=== PATIENT | male | born 1995 | race Caucasian/White ===

== ENCOUNTER 2023-01-29 12:48 | Outpatient (OUT) | payer BC, SELFPAY ==
--- NOTE | 2023-01-29 13:42 | P.CN_ITS ---
Consult Note: HPI Data of Consult Patient: new to practice Consult date: 01/29/23 Requesting Physician: Steve Rene MD Primary Care Provider: TEJAS SAUNDERS Consult Narrative Reason for consult: low back, bilateral lower extremity pain Narrative: Latonia Herrerayoclair who presents for evaluation. Notes increasing pain throughout his low back and bilateral lower extremities that has been worsening for several months. Completed chiropractic therapy, medrol dosepak, tizanidine without much relief. Engages in provider directed home exercise program for >6 weeks, with limited relief. MRI was reviewed, which is significant for disc bulging at L5- S1. 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 Denies adverse medication side effects or loss of bowel or bladder control. cc:: CC: Steve Rene MD Review of Systems ROS Status of ROS 10 or more systems reviewed and unremarkable except as noted in history and below Exam Narrative Exam Narrative: Psych-alert and oriented x 3. Attentive and appropriate, constitutionally normal, displays normal mood and affect per situation. There are no obvious deficits in memory, reasoning, or intellect.? Skin-no obvious rashes, bruising, erythema noted to the patient's area of pain.? Extremities- extremities are warm with minimal edema and palpable pulses. Lumbar-tenderness to palpation noted in the lumbar spine and paraspinal musculature. Pain is elicited with flexion, extension, and lateral rotation of the lumbar spine. Range of motion is diminished with these motions. Facet loading maneuvers are positive.? Strength-noted to be unremarkable with the exception of decreased strength rated at 4 out of 5 in bilateral quadriceps femoris. Sensory-no notable sensory deficits in the bilateral lower extremities to touch or pinprick in all dermatomal distributions with the exception to decreased sensation to the bilateral 4, 5 dermatomal distribution Coordination remains intact.? Gait remains non-antalgic Assessment and Plan Assessment and Plan (1) Lumbar disc displacement without myelopathy: Plan Latonia Herrerayoclair who presents for evaluation. Failed conservative measures, as noted. Imaging findings reviewed, as noted. Given symptoms and imaging findings, prudent to attempt bilateral L5-S1 TFESI x2 to provide analgesia. He is in agreement. Medications reviewed, no changes. Follow up after procedure.
== END 2023-01-29 12:49 | disposition home or self-care (01) ==
PROVIDERS: PCP Nurse Practitioner Primary Care; Visit Provider Anesthesiology
DX: M51.26 Other intervertebral disc displacement, lumbar region (principal)
CPT/HCPCS: G0463

== ENCOUNTER 2023-02-19 08:02 | Day surgery (SDC) | payer BC, SELFPAY ==
[2023-02-19 08:24] VITALS: BP 130/90; PULSE 95; RESP 14; TEMP 36.3; O2SAT 98
[2023-02-19 09:10] VITALS: BP 122/75; PULSE 83; RESP 16; O2SAT 99
[2023-02-19] MEDS: TRIAMCINOLONE ACETONIDE 40 MG/ML VIAL 80 MG INJ (09:11)
[2023-02-19] MEDS: LIDOCAINE HCL 2% PF 100 MG/5 ML VIAL 3 ML INJ (09:11)
[2023-02-19] MEDS: BUPIVACAINE HCL 0.25% PF 25 MG/10 ML VIAL 4 ML INJ (09:11)
[2023-02-19] MEDS: IOHEXOL 240 MG/ML - 10 ML VIAL INJ (09:11)
[2023-02-19 09:13] VITALS: BP 118/74; PULSE 78; RESP 16; O2SAT 98
--- NOTE | 2023-02-19 09:14 | W.PM.PROCNOT ---
Date of procedure: 02/19/23 Pre-op diagnosis: Lumbar stenosis with neurogenic claudication Post-op diagnosis: same as pre-op Procedure: Procedure: Bilateral L5-S1 transforaminal epidural steroid injection Medications: Bupivacaine 0.25% 2cc, kenalog 80mg The patient was seen and examined in the preoperative holding area.? Informed consent was obtained and placed on the chart.? Patient was brought to the medical procedure unit and placed in the prone position where a timeout was completed verifying the correct patient, procedure site, position, and planned special equipment using sterile aseptic technique.? Under direct fluoroscopic visualization a 25-gauge Quincke tipped spinal needle was advanced at level left L5-S1 to the designated neural foramen where contrast dye was injected to show adequate spread.? There was no evidence of vascular or adverse uptake.? Epidural spread was appreciated.? The above-mentioned injectate was then placed in a 1.5 mL aliquot preceded by negative aspiration.? The needle was removed. The same procedure, at the same level, was completed on the opposite side. ? Patient was taken to the postprocedural recovery area and monitored for an appropriate length of time before found suitable for discharge in the accompaniment of a responsible adult. Anesthesia: Local Surgeon: Steve Rene Pathology: none sent Condition: stable Disposition: no change
== END 2023-02-19 09:17 | disposition home or self-care (01) ==
PROVIDERS: PCP Nurse Practitioner Primary Care; Visit Provider Anesthesiology
DX: M48.062 Spinal stenosis, lumbar region with neurogenic claudication (principal)
CPT/HCPCS: 64483; Q9966

== ENCOUNTER 2023-02-28 10:16 | Outpatient (OUT) | payer BC, SELFPAY ==
--- NOTE | 2023-02-28 11:02 | P.CN_ITS ---
Consult Note: HPI Data of Consult Patient: known to practice within the last 3 years Consult date: 01/29/23 Requesting Physician: Soha Mariano NP Primary Care Provider: TEJAS SAUNDERS Consult Narrative Reason for consult: low back, bilateral lower extremity pain Narrative: Pleasant 27yom who presents for evaluation. Notes increasing pain throughout his low back. Completed chiropractic therapy, medrol dosepack, tizanidine without much relief. Engages in provider directed home exercise program for >6 weeks, with limited relief. MRI was reviewed, which is significant for disc bulging at L5-S1. 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 Denies adverse medication side effects or loss of bowel or bladder control. Patient rating pain today 3-4/10. JENNY 30% with moderate pain, pain with lifting heavy weights, pain that prevents him from walking more than 0.5 miles, pain that causes 4 hours of sleep or less, pain that impacts social life and travel. Patient recently underwent bilateral L5-S1 TFESI with 0% pain relief or functional improvement per patient cc:: CC: Soha Mariano NP Review of Systems ROS Status of ROS 10 or more systems reviewed and unremarkable except as noted in history and below Musculoskeletal Reports: back pain Meds Home Medications and Allergies Home Medications Medication Instructions Recorded Confirmed Type diclofenac sodium 75 mg 75 mg PO BID 01/29/23 02/19/23 History tablet,delayed release tizanidine 4 mg capsule 4 mg PO BID PRN muscle spasticity 01/29/23 02/19/23 History Allergies Allergy/AdvReac Type Severity Reaction Status Date / Time No Known Drug Allergies Allergy Verified 02/19/23 08:23 Exam Constitutional Documenting provider has reviewed patient's vital signs: yes Common normals: no apparent distress, oriented x3, healthy appearing, alert and well nourished General appearance: cooperative HENMT Common normals: normocephalic, hearing grossly normal bilaterally and moist oral mucous membranes Head and scalp: normocephalic Eye Common normals: PERRL Pupil: PERRL Neck & C-Spine Common normals: full ROM General: normal visual inspection Chest Common normals: inspection of chest normal Respiratory Common normals: normal respiratory effort, no retractions and no use of accessory muscles Back & Pelvis Lumbar spine/lower back: ROM limited, pain with ROM and straight leg raise negative bilaterally Other: bilateral facet loading positive axial back pain without radiculopathy pain over L4-5 L5-S1 facets Extremity Common normals: normal to inspection and full ROM Neuro Common normals: oriented x3, CN's II-XII intact bilaterally, moves all extremities, no focal motor deficits, no sensory deficits noted, deep tendon reflexes 2+ bilaterally and gait normal Sensorium/orientation: alert Motor exam: strength 5/5 throughout and no movement abnormalities noted Psych Common normals: mental status grossly normal, thought process normal, cooperative, affect normal, speech normal and activity/motor behavior normal Speech: normal speech Thought process: normal thought process Results Additional Findings Additional findings: I have checked an OARRS report on this patient today and there are no aberrancies noted in the prescribing history.?? A drug screen was completed and reviewed within the last year, and if there has not been a drug screen completed we ordered one today to monitor higher risk, state monitored pain medication use. As part of providing excellent, safe, comprehensive care, the following was completed at our patient's visit: 1. A medication reconciliation and review to ensure accurate knowledge of current/active medications, including asking our patients to inform us about any quaz-xzl-tyuacxf medications or herbal remedies/nutritional supplements/alternative remedies. 2. A review to specifically ensure our patients have had annual screening for: elevated body mass index (BMI), tobacco use, screening for depression, and screening for unhealthy alcohol use. When screening is concerning, patients are provided with education and the specific recommendation to discuss the concerni ng health issue and treatment options with their primary care provider. Assessment and Plan Assessment and Plan (1) Lumbar disc displacement without myelopathy: (2) Lumbar spondylosis: Assessment and Plan: The patient has had over 3 months of moderate to severe low back pain with functional impairment and inadequate response to conservative care including NSAIDS (unless there are contraindication such as concurrent blood thinners), multiple oral or topical pain medications, and home exercise program/physical therapy.? Patient has completed >6 weeks of guided home exercise program and/or formal physical therapy program without relief of their symptoms. ? We discussed the risks and benefits of the procedure with the patient ?The procedure will be completed with fluoroscopic guidance.? Plan -bilateral L4-5 L5-S1 MBB working towards a thermal RFA. if patient has greater than 80% pain relief and functional improvement will proceed with MBB #2 working towards thermal RFA refill and continue tizanidine 4mg BID PRN continue diclofenac 75mg BID PRN, encouraged to try more consistently to see if that improves his pain -continue HEP as tolerated, activity moderately limited -can consider steroid rotation and repeat lumbar ANASTASIA if he does not respond well to MBB -f/u 1 week after procedure
== END 2023-02-28 10:17 | disposition home or self-care (01) ==
LOC: PM 10:17
PROVIDERS: PCP Nurse Practitioner Primary Care; Visit Provider Nurse Practitioner
DX: M51.26 Other intervertebral disc displacement, lumbar region (principal); M47.816 Spondylosis without myelopathy or radiculopathy, lumbar region
CPT/HCPCS: G0463

== ENCOUNTER 2023-04-02 08:34 | Day surgery (SDC) | payer BC, SELFPAY ==
[2023-04-02 09:06] VITALS: BP 126/86; PULSE 98; RESP 16; TEMP 36.2; O2SAT 97
[2023-04-02] MEDS: LIDOCAINE HCL 2% PF 100 MG/5 ML VIAL 3 ML INJ (09:59)
[2023-04-02] MEDS: BUPIVACAINE HCL 0.25% PF 25 MG/10 ML VIAL 8 ML INJ (09:59)
[2023-04-02 10:01] VITALS: BP 137/75; PULSE 85; RESP 16; O2SAT 98
[2023-04-02 10:02] VITALS: BP 150/82; PULSE 84; RESP 18; O2SAT 98
--- NOTE | 2023-04-02 10:02 | W.PM.PROCNOT ---
Date of procedure: 04/02/23 Pre-op diagnosis: Lumbar spondylosis Post-op diagnosis: same as pre-op Procedure: Procedure: Bilateral L4-5, L5-S1 medial branch block Medications: Bupivacaine 0.25% 6cc The patient was seen and examined in the preoperative holding area.? An informed consent was obtained and placed on the chart.? The patient was brought to the medical procedure unit and placed in the prone position.? A timeout was completed verifying correct patient, procedure site, positioning, plan, and special equipment.? Using aseptic technique, the needle was placed at left L4. Under direct fluoroscopic visualization a Quincke-tipped spinal needle was advanced to the junction of the superior articulating process with the transverse process at the designated medial branch segment.? Preceded by negative aspiration, the above-mentioned injectate was placed in 1 mL aliquots.? The procedure was repeated at left L5, S1.? The needle was removed and insertion site was covered. The same procedure, at the same levels, was completed on the right side. The patient was taken to the postprocedural recovery area and monitored for an appropriate length of time before found suitable for discharge in the company of a responsible adult. Anesthesia: Local Surgeon: Steve Rene Pathology: none sent Condition: stable Disposition: no change
== END 2023-04-02 10:06 | disposition home or self-care (01) ==
PROVIDERS: PCP Nurse Practitioner Primary Care; Visit Provider Anesthesiology
DX: M47.816 Spondylosis without myelopathy or radiculopathy, lumbar region (principal)
CPT/HCPCS: 64493; 64494

== ENCOUNTER 2023-04-12 08:03 | Outpatient (OUT) | payer BC, SELFPAY ==
--- NOTE | 2023-04-12 08:24 | P.CN_ITS ---
Consult Note: HPI Data of Consult Patient: known to practice within the last 3 years Consult date: 01/29/23 Requesting Physician: Soha Mariano NP Primary Care Provider: HUMBERTO COLEY APRN-KAVITA Consult Narrative Reason for consult: f/u Narrative: Pleasant 27yom who presents for evaluation of low back pain. Pt had completed chiropractic therapy, medrol dosepack, tizanidine without much relief. Engages in provider directed home exercise program for >6 weeks, with limited relief previously. Denies adverse medication side effects or loss of bowel or bladder control. Patient rating pain today 0/10. JENNY 0%. Patient recently underwent bilateral L4/5 L5/S1 MBB#1 with 100% ongoing pain relief and functional improvement. Patient has had 0/10 low back pain since the injection and is very pleased. Has not needed tizanidine or diclofenac. cc:: CC: Soha Mariano NP Review of Systems ROS Status of ROS 10 or more systems reviewed and unremark able except as noted in history and below [facility] Medical History (Updated 03/20/23 @ 15:06 by Fannie Hilario) Low back pain ?M54.50 - Low back pain, unspecified (ICD-10) Surgical History History of appendectomy ?Z90.49 - Acquired absence of other specified parts of digestive tract (ICD- 10) Meds Home Medications and Allergies Home Medications Medication Instructions Recorded Confirmed Type diclofenac sodium 75 mg 75 mg PO BID 01/29/23 04/02/23 History tablet,delayed release tizanidine 4 mg capsule 4 mg PO BID PRN muscle spasticity 01/29/23 04/02/23 History Allergies Allergy/AdvReac Type Severity Reaction Status Date / Time No Known Drug Allergies Allergy Verified 04/02/23 09:11 Exam Constitutional Documenting provider has reviewed patient's vital signs: yes Common normals: no apparent distress, oriented x3, healthy appearing, alert and well nourished General appearance: cooperative HENMT Common normals: normocephalic, hearing grossly normal bilaterally and moist oral mucous membranes Head and scalp: normocephalic Eye Common normals: PERRL Pupil: PERRL Neck & C-Spine Common normals: full ROM General: normal visual inspection Chest Common normals: inspection of chest normal Respiratory Common normals: normal respiratory effort, no retractions and no use of accessory muscles Back & Pelvis Lumbar spine/lower back: straight leg raise negative bilaterally Other: no low back pain, negative facet loading, nontender over low back Extremity Common normals: normal to inspection and full ROM Neuro Common normals: oriented x3, CN's II-XII intact bilaterally, moves all extremities, no focal motor deficits, no sensory deficits noted and deep tendon reflexes 2+ bilaterally Sensorium/orientation: alert Motor exam: strength 5/5 throughout and no movement abnormalities noted Psych Common normals: mental status grossly normal, thought process normal, cooperative, affect normal, speech normal and activity/motor behavior normal Speech: normal speech Thought process: normal thought process Results Additional Findings Additional findings: I have checked an OARRS report on this patient today and there are no aberrancies noted in the prescribing history.?? A drug screen was completed and reviewed within the last year, and if there has not been a drug screen completed we ordered one today to monitor higher risk, state monitored pain medication use. As part of providing excellent, safe, comprehensive care, the following was completed at our patient's visit: 1. A medication reconciliation and review to ensure accurate knowledge of current/active medications, including asking our patients to inform us about any ndex-kdh-dxdqhbw medications or herbal remedies/nutritional supplements/alternative remedies. 2. A review to specifically ensure our patients have had annual screening for: elevated body mass index (BMI), tobacco use, screening for depression, and screening for unhealthy alcohol use. When screening is concerning, patients are provided with education and the specific recommendation to discuss the conc erning health issue and treatment options with their primary care provider. Assessment and Plan Assessment and Plan (1) Lumbar spondylosis: (2) Lumbar disc displacement without myelopathy: Plan pain resolved at this point in time, if pain returns or functional status declins we will proceed with bilateral L4-5 L5-S1 MBB#2 working towards thermal RFA f/u as needed
== END 2023-04-12 08:04 | disposition home or self-care (01) ==
LOC: PM 08:08
PROVIDERS: PCP Nurse Practitioner Primary Care; Visit Provider Nurse Practitioner
DX: M47.816 Spondylosis without myelopathy or radiculopathy, lumbar region (principal); M51.26 Other intervertebral disc displacement, lumbar region
CPT/HCPCS: G0463

== ENCOUNTER 2023-11-29 14:16 | Outpatient (OUT) | payer BC, SELFPAY ==
--- NOTE | 2023-11-29 14:22 | XR_ITS ---
[facility] [place] [id number] Patient Name: ADILENE MTZ MRN: [id number] date: 1995 Sex: M Assigned Patient Location: [facility] Current Patient Location: Accession/Order Number: [id number] Exam Date: 11/29/2023 14:55 Report Date: 12/03/2023 07:56 At the request of: HIGINIO CRUZ Procedure: XR lumbar spine min 4V EXAMINATION: XR lumbar spine min 4V HISTORY: Low Back Pain M54.50 ; bilateral hip pain ; recent fall COMPARISON: No relevant comparison available. FINDINGS: BONES: Slight left convex curvature of lumbar spine. No fracture, spondylolisthesis, bone lesion. No significant facet arthropathy. DISC SPACES: Minimal narrowing L5-S1. PARASPINOUS: Negative. No paraspinous abnormality is seen. OTHER: Negative. XR/XR lumbar spine min 4V IMPRESSION: 1. No appreciable acute abnormality. 2. Minimal degenerative changes. Electronically authenticated by: CHRISSY MURGUIA Date: 12/03/2023 07:56
--- OUTSIDE RECORDS SUMMARY | 2023-11-29 14:43 | XMS_ITS | CCD ---
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 Name Role Phone TERENCE Rice Attending Provider Melody Rice Attending Unavailable Melody Rice Admitting Unavailable NO FAMILY, PHYSICIAN Primary Care Unavailable Barbaraitis , Steve Gay Attending Unavailable Barbaraitis , Steve Gay Attending Unavailable Anju JONES, Steve Gay Attending Unavailable Problems Problem Classification Problem Date Documented Da te Episodic/Chronic Unclassified (1 source) Pain in left hand; Translations: [Pain in left hand] Onset: 12-06-2022 Results Test Name Value Interpretation Reference Range Facil ity XR hand LT min 3V*on 023 XR hand LT min 3V* [facility] [place] [address] XRay Report Signed Patient: Adilene Mtz MR#: [id number] : 1995 Acct:[id number] Age/Sex: 27 / M ADM Date: 12/06/22 Loc: XNDLY Room: Type: [facility] Attending Dr: Melody PRATT Copies to: TERENCE Hill Ordering Provider: TERENCE Hill Date of Service: 12/06/22 XR/XR hand LT min 3V*: M79.642 3 views left hand hand plain film COMPARISON: None HISTORY: Hand injury. Second third and fourth metacarpal ACUTE FINDINGS: None DEGENERATIVE CHANGE: Unremarkable SOFT TISSUE FINDINGS: Unremarkable JOINT EFFUSION: None POSTOP CHANGES: None BONY MINERALIZATION: Adequate XR/XR hand LT min 3V* IMPRESSION: No acute findings Impression dictated by: Jose Luis Morgan M.D.12/06/2022 7:21 PM Dictation Location: [place] [address] Transcribed By: [facility] 12/06/221920 Dictated By: Jose Luis Morgan DO 12/06/221918 Signed By: 12/06/221920 [facility] ED Physician Reporton 2021 ED Physician Report Patient: ADILENE MTZ Age: 26 years Sex: Male : 1995 Associated Diagnoses: Left knee injury; Left knee sprain Author: Simona Modi CNP Basic Information Time seen: Date & time 12/20/2021 12:50:00. History source: Patient. Arrival mode: Private vehicle. History limitation: None. History of Present Illness The patient presents with knee pain. The onset was just prior to arrival. Type of injury: fall. Location: Left knee. The character of symptoms is pain and swelling. The degree at present is severe. There are exacerbating factors including weight bearing and walking. The relieving factor is none. Risk factors consist of none. Prior episodes: none. Therapy today: none. Associated symptoms: none. Patient is a 26-year-old male presents to the emergency room department for complaints of left knee pain status post fall. Patient states he was at work when he was working with a rebar and the rebar came snapped. Patient fell on his left knee against the concrete. Patient states he had a hard time ambulating after his fall and came to the ER for an evaluation. Patient states he told he has a partial tear in his left meniscus, but has not had any type of surgical intervention. Patient has no chronic medical problems and does not take any medication daily. Review of Systems Constitutional symptoms: Negative except as documented in HPI. Skin symptoms: Negative except as documented in HPI. Eye symptoms: Negative except as documented in HPI. ENMT symptoms: Negative except as documented in HPI. Respiratory symptoms: Negative except as documented in HPI. Cardiovascular symptoms: Negative except as documented in HPI. Gastrointestinal symptoms: Negative except as documented in HPI. Genitourinary symptoms: Negative except as documented in HPI. Musculoskeletal symptoms: Negative except as documented in HPI, left knee pain. Psychiatric symptoms: Negative except as documented in HPI. Endocrine symptoms: Negative except as documented in HPI. Hematologic/Lymphatic symptoms: Negative except as documented in HPI. Allergy/immunologic symptoms: Negative except as documented in HPI. Neurologic symptoms Negative except as documented in HPI. Additional review of systems information: All other systems reviewed and otherwise negative. Health Status Allergies: Allergic Reactions (Selected) No Known Allergies. Medications: None. Immunizations: Unknown. Past Medical/ Family/ Social History Medical history: Negative. Surgical history: Negative. Family history: Not significant. Social history: Not significant. Physical Examination Vital Signs Vital Signs 12/20/2021 12:20 EDT Temperature Oral 37.1 degC NORMAL Peripheral Pulse Rate 94 bpm NORMAL Respiratory Rate 20 br/min NORMAL Systolic Blood Pressure 133 mmHg NORMAL Diastolic Blood Pressure 88 mmHg NORMAL SpO2 97 % NORMAL Oxygen Therapy Room air Weight Measured Type of Scale Patient Stated Weight Height/Length Dosing 185.42 cm Patient Stated Weight 90.3 kg . General: Alert, no acute distress. Skin: Warm, dry, no rash. Head: Normocephalic, atraumatic. Neck: Supple, trachea midline. Eye: Pupils are equal, round and reactive to light, extraocular movements are intact. Ears, nose, mouth and throat: Oral mucosa moist. Cardiovascular: Regular rate and rhythm, Normal peripheral perfusion, No edema. Respiratory: Lungs are clear to auscultation, respirations are non-labored, breath sounds are equal. Gastrointestinal: Soft, Nontender, Non distended, Normal bowel sounds. Back: Normal range of motion, Normal alignment. Musculoskeletal: Normal ROM, normal strength, no deformity, Lower extremity: Right, knee, tenderness, swelling, range of motion (limited, on flexion, restricted by pain), sensation intact, strong pedal pulses. Dori coma scale Total score: Total score: 15. Neurological Alert and oriented to person, place, time, and situation, No focal neurological deficit observed, CN II-XII intact, normal sensory observed, normal motor observed, normal speech observed. Medical Decision Making Radiology results: KNEE LEFT 3 VIEWS 12/20/21 12:55:00 Sex: Male. : 1995. Technique: 3 views of the left knee. Clinical history: PAIN. Findings: The knee joint is normal. The patellofemoral joint is normal. There is no suprapatellar bursal articular effusion. There is no fracture or dislocation. No destructive lesion. Impression: 1. No acute skeletal abnormality. Electronically signed by: Jarrett Roblero MD 12/20/2021 12:38 PM CDT Signed By: JARRETT ROBLERO MD. Reexamination/ Reevaluation Is a 26-year-old male presents to the emergency room department for complaints of left knee injury. X-ray read by radiologist showed no acute skeletal abnormality. Patient was placed in knee immobilizer and was given crutches. Patient told to follow-up with orthopedic (more content not included)... Normal [facility] APAP 325MG/OXYCODONE 5MG TAB on 12-20-2021 APAP 325MG/OXYCODONE 5MG TAB PRN Response Entered On: 12/20/2021 15:25 EDT Performed On: 12/20/2021 14:12 EDT by Ayah Brooke RN Intervention Information: acetaminophen-oxycodo ne Performed by Ayah Brooke RN on 12/20/2021 13:12:00 EDT acetaminophen-oxycodo ne (acetaminophen-oxycod one 325 mg-5 mg oral tablet = Percocet),1tabs ORAL PRN Medication Response PRN Medication used for : Pain PRN Medication Effectiveness : Yes PRN Response Pain Scales : Numeric (8yrs & older) Numeric Pain Scale Age : Numeric (8yrs & older) Actual time of reassessment : No (not needed time is correct) Ayah Brooke RN - 12/20/2021 15:25 EDT Numeric Pain Scale Numeric Pain Scale : 7 = Severe Pain Numeric Pain Score : 7 Ayah Brooke RN - 12/20/2021 15:25 EDT Normal [facility] Comment on above: Order Comment: Check for other orders containing acetaminophen before administering. Max total daily amount is 4000 mg. ED Adult Data - Texton 12-20 ED Adult Data - Text ED Adult Data Entered On: 12/20/2021 12:34 EDT Performed On: 12/20/2021 12:33 EDT by Corinne Ríos RN Arrival Information Information Given by : Patient Referral Source ED : Home [facility] Mode of Arrival : Car / Walk-In Airway : Normal Breathing : Normal Circulation : Normal Corinne Ríos RN - 12/20/2021 12:33 EDT Screening-General Meds Triage : NA Accept Blood Products if Necessary : Yes Immunizations Current : Unknown Last Tetanus : Unknown Status : N/A Preferred Verbal : Czech Corinne Ríos RN - 12/20/2021 12:33 EDT Depression Screening Patient able to verbalize? : Yes Feeling Down, Depressed, Hopeless : Not at all Little Interest - Pleasure in Activities : Not at all Initial Depression Screen Score : 0 Depression Screening Score 0 : No IP Pt being evaluated or treated for BH conditions : No Corinne Ríos RN - 12/20/2021 12:33 EDT Screening-Safety Abuse/Violence Concerns? : Patient denies Does the patient have a medically restricted extremity? : No Corinne Ríos RN - 12/20/2021 12:33 EDT Problem List Problem List obtained from : Patient Corinne Ríos RN - 12/20/2021 12:33 EDT (As Of: 12/20/2021 12:34:27 EDT) Problems(Active) No Chronic Problems (Cerner :NKP ) Name of Problem: No Chronic Problems ; Recorder: Corinne Ríos RN; Code: NKP ; Last Updated: 12/20/2021 12:32 EDT ; Life Cycle Date: 12/20/2021 ; Life Cycle Status: Active ; Vocabulary: Faye Diagnoses(Active) Knee pain-swelling Date: 12/20/2021 ; Diagnosis Type: Reason For Visit ; Confirmation: Confirmed ; Clinical Dx: Knee pain-swelling ; Classification: Medical ; Clinical Service: Emergency medicine ; Code: PNED ; Probability: 0 ; Diagnosis Code: [id number] Procedure History ED Devices Present on Arrival To ED : None Urinary Catheter Present on Admit to ED : No Corinne Ríos RN - 12/20/2021 12:33 EDT - Procedure History (As Of: 12/20/2021 12:34:27 EDT) Social History Does pt have any alcohol,drugs or tobacco : No Do you consume Alcohol : No Social History obtained from : Patient Corinne Ríos RN - 12/20/2021 12:33 EDT Social History (As Of: 12/20/2021 12:34:27 EDT) Alcohol: Denies Alcohol Use (Last Updated: 12/20/2021 12:34:12 EDT by Corinne Ríos RN ) Tobacco: Denies Tobacco Use (Last Updated: 12/20/2021 12:34:13 EDT by Corinne Ríos RN ) Substance Abuse: Denies Substance Abuse (Last Updated: 12/20/2021 12:34:15 EDT by Corinne Ríos RN ) Infection Screening Last Physical Overnight Location of the Patient : Personal Residence Discharge from Other Facility in past 4 weeks : No Travel outside [place] within past 30 days : No History of Recent Diarrhea : No Concern possible Infectious Disease : No Exposure AND/OR close contact with a person under investigation or laboratory-confirmed COVID-19 individual within 14 days of symptom onset AND/OR any of the following: : No Do you live/work in a high risk situation (congregated living, hemodialysis, infusion clinic, fdc, assisted living, skilled nursing, homeless penitentiary, etc.)? : No Corinne Ríos RN - 12/20/2021 12:33 EDT Normal [facility] ED Discharge Educationon ED Discharge Education Orthopedics and Rheumatology Learning About How to Use Crutches Your Care Instructions Crutches can help you walk when you have an injured hip, leg, knee, ankle, or foot. Your doctor will tell you how much weightif anyyou can put on your leg. Be sure your crutches fit you. When you stand up in your normal posture, there should be space for two or three fingers between the top of the crutch and your armpit. When you let your hands hang down, the hand aquatics director should be at your wrists. When you put your hands on the hand aquatics director, your elbows should be slightly bent. To stay safe when using crutches: ? Look straight ahead, not down at your feet. ? Clear away small rugs, cords, or anything else that could cause you to trip, slip, or fall. ? Be very careful around pets and small children. They can get in your path when you least expect it. ? Be sure the rubber tips on your crutches are clean and in good condition to help prevent slipping. ? Avoid slick conditions, such as wet floors and snowy or icy driveways. In bad weather, be especially careful on curbs and steps. How to use crutches Getting ready to walk 1. Bend your elbows slightly. Press the padded top parts of the crutches against your sides, under your armpits. 2. If you have been told not to put any weight on your injured leg, keep that leg bent and off the ground. How to walk with crutches when you can put weight on the injured leg Crutches allow you to take all the weight off of one leg. They can also be used as an added support if you have some injury or condition of both legs. Here's how to walk with crutches when you're able to put weight on your weak or injured leg. Be sure your crutches fit you. ? When you stand up in your normal posture, there should be space for two or three fingers between the top of the crutch and your underarm. ? When you let your hands hang down, the hand aquatics director should be at your wrists. ? When you put your hands on the hand aquatics director, your elbows should be slightly bent. 1. Put both crutches about 12 inches in front of you. 2. Put your weight on the handgrips, not on the pads under your arms. 3. Move your weak or injured leg forward so it's almost even with the crutches. 4. Bring your good leg up, so it's even with your weak or injured leg. 5. Move your crutches about 12 inches in front of you, and start the next step. The crutches and your feet should form a triangle. Hold the crutches close enough to your body so you can push straight down on them, but leave room between the crutches for your body to pass through. Don't lean forward to reach farther. Constant pressure against your underarms can cause numbness. When you're confident using the crutches, you can move the crutches and your injured leg at the same time. Then push straight down on the crutches as you step past the crutches with your strong leg, as you would in normal walking. Take small steps. Use ramps and elevators when you can. Sitting down 1. To sit, back up to the chair. Use one hand to hold both crutches by the handgrips, beside your injured leg. With the other hand, hold onto the seat and slowly lower yourself onto the chair. 2. Lay the crutches on the ground near your chair. If you prop them up, they may fall over. Getting up from a chair 1. To get up from a chair, corn picker the crutches and put them in one hand beside your injured leg. 2. Put your weight on the handgrips of the crutches and on your strong leg to stand up. How to go up and down stairs using crutches Here's how to go up and down stairs using crutches. Try this first with another person nearby to steady you if needed. 1. Stand near the edge of the stairs. 2. Go up or down the stairs. ? If you are going up, step up with your stronger leg. Then bring the crutches and your weak or injured leg to the upper step. ? If you are going down, put your crutches and your weak or injured leg on the lower step. Then bring your stronger leg down to the lower step. Remember up with the good, and down with the bad to help you lead with the correct leg. Crutches: How to go up and down stairs with handrails If the stairs have a good sturdy handrail, you can hold it with one hand and your crutches together in the other hand. Here's how. Try this first with another person nearby to steady you if needed. If the stairs have a handrail but you don't think it's sturdy enough, use the crutches normally, holding one in each hand. 1. Stand near the edge of the stairs. 2. Put both crutches under the arm opposite the handrail. 3. Use the hand opposite the handrail to hold both crutches by the handgrips. 4. Hold onto the handrail as you go up or down. 5. Go up or down the stairs. ? If you are going up, step up with your stronger leg. Then bring the crutches and your weak or injured leg to the upper step. ? If you are going down, put your crutches and your weak or injured leg on the lower step. Then bring your stronger leg d (more content not included)... Normal [facility] ED Emergency Severity Index Adult-Texton 12-20-2021 ED Emergency Severity Index Adult-Text ANASTASIA - Adult Entered On: 12/20/2021 12:28 EDT Performed On: 12/20/2021 12:28 EDT by Corinne Ríos RN ANASTASIA DCP GENERIC CODE Visit Reason : left knee injury Tracking Triage Date/Time : 12/20/2021 12:28 EDT Tracking Reg Status : Requested Tracking Acuity : [id number] Tracking Group : [id number] Tracking Corinne Ríos RN - 12/20/2021 12:28 EDT Normal [facility] ED Nrsing Adlt Triage Sep Sc rning - Texton 12-20-2021 ED Nrsing Adlt Triage Sep Scrning - Text ED Nursing Adult Triage Sepsis Screening Tool Entered On: 12/20/2021 12:32 EDT Performed On: 12/20/2021 12:32 EDT by Corinne Ríos RN Adult Sepsis Screening Sepsis Infection Screening ED : No Corinne Ríos RN - 12/20/2021 12:32 EDT Normal [facility] ED Patient Summaryon 022 ED Patient Summary [facility] Emergency Department Discharge Instructions [address] [place] [address] \.br\(Patient Copy)\.br\ \.br\Name: ADILENE MTZ : 1995 \.br\Allergies: No Known Allergies\.br\Diagnos is: Diagnoses This Visit\.br\ Knee pain-swelling ([id number])\.br \ Left knee injury (S89.92XA)\.br\ Left knee sprain (S83.92XA)\.br\.br\ .br\ \.br\ Visit Date: 12/20/2021 12:13:15 \.br\ Current Date Time: 12/20/2021 15:59:23 \.br\Address: [facility] [address] \.br\ \.br\ \.br\Primary Care Provider: \.br\Name: NO FAMILY PHYSICIAN, 837\.br\Phone: \.br\ \.br\Emergency Department Care Providers: \.br\ Primary Physician: CHARISSA MCNULTY MD \.br\ \.br\ \.br\.br\Thank you for choosing [facility] for your emergency care. You are very important to us. Our goal is to demonstrate our high quality medical care, and provide you with a very good patient experience.\.br\.br\ You may receive a survey about our service. Please take the time to complete the survey and return it so we can continue to enhance our service.\.br\.br\Zana nk you again for allowing the [facility] Emergency Department to care for your medical needs. If you have questions about your care or follow up information please contact us at [phone].\.br\.b r\ Follow-Up Instructions\.br\____ _\.br\ADILENE MTZ has been given these follow-up instructions:\.br\.b r\.br\With: Address: When: \.br\[facility], [facility]oped[facility] [address], [address] [place] [address]\.br\ Business (2) Within 3 to 5 days \.br\.br\.br\With: Address: When: \.br\[address] NO FAMILY PHYSICIAN Within 3 to 5 days \.br\.br\.br\.br\ .br\Patient Education Materials\.br\ \. br\ADILENE MTZ has been given the following patient education materials:\.br\.br\L earning About How to Use Crutches\.br\Your Care Instructions\.br\Crut ches can help you walk when you have an injured hip, leg, knee, ankle, or foot. Your doctor will tell you how much weightif anyyou can put on your leg.\.br\Be sure your crutches fit you. When you stand up in your normal posture, there should be space for two or three fingers between the top of the crutch and your armpit. When you let your hands hang down, the hand aquatics director should be at your wrists. When you put your hands on the hand aquatics director, your elbows should be slightly bent.\.br\To stay safe when using crutches:\.br\? Look straight ahead, not down at your feet.\.br\? Clear away small rugs, cords, or anything else that could cause you to trip, slip, or fall.\.br\? Be very careful around pets and small children. They can get in your path when you least expect it.\.br\? Be sure the rubber tips on your crutches are clean and in good condition to help prevent slipping.\.br\? Avoid slick conditions, such as wet floors and snowy or icy driveways. In bad weather, be especially careful on curbs and steps.\.br\How to use crutches\.br\Getting ready to walk \.br\1. Bend your elbows slightly. Press the padded top parts of the crutches against your sides, under your armpits.\.br\2. If you have been told not to put any weight on your injured leg, keep that leg bent and off the ground. \.br\How to walk with crutches when you can put weight on the injured leg \.br\Crutches allow you to take all the weight off of one leg. They can also be used as an added support if you have some injury or condition of both legs. Here's how to walk with crutches when you're able to put weight on your weak or injured leg.\.br\Be sure your crutches fit you.\.br\? When you stand up in your normal posture, there should be space for two or three fingers between the top of the crutch and your underarm.\.br\? When you let your hands hang down, the hand aquatics director should be at your wrists.\.br\? When you put your hands on the hand aquatics director, your elbows should be slightly bent.\.br\1. Put both crutches about 12 inches in front of you.\.br\2. Put your weight on the handgrips, not on the pads under your arms.\.br\3. Move your weak or injured leg forward so it's almost even with the crutches.\.br\4. Bring your good leg up, so it's even with your weak or injured leg.\.br\5. Move your crutches about 12 inches in front of you, and start the next step.\.br\The crutches and your feet should form a triangle. Hold the crutches close enough to your body so you can push straight down on them, but leave room between the crutches for your body to pass through. Don't lean forward to reach farther.\.br\Constant pressure against your underarms can cause numbness.\.br\When you're confident using the crutches, you can move the crutches and your injured leg at the same time. Then push straight down on the crutches as you step past the crutches with your strong leg, as you would in normal walking.\.br\Take s (more content not included)... Normal [facility] ED Triage Adult-Texton 12-20 ED Triage Adult-Text ED Triage Entered On: 12/20/2021 12:33 EDT Performed On: 12/20/2021 12:20 EDT by Corinne Ríos RN Triage (As Of: 12/20/2021 12:33:35 EDT) Problems(Active) No Chronic Problems (Cerner :NKP ) Name of Problem: No Chronic Problems ; Recorder: Corinne Ríos RN; Code: NKP ; Last Updated: 12/20/2021 12:32 EDT ; Life Cycle Date: 12/20/2021 ; Life Cycle Status: Active ; Vocabulary: Faye Diagnoses(Active) Knee pain-swelling Date: 12/20/2021 ; Diagnosis Type: Reason For Visit ; Confirmation: Confirmed ; Clinical Dx: Knee pain-swelling ; Classification: Medical ; Clinical Service: Emergency medicine ; Code: PNED ; Probability: 0 ; Diagnosis Code: [id number] (As Of: 12/20/2021 12:33:35 EDT) Allergies (Active) No Known Allergies Estimated Onset Date: Unspecified ; Created By: Corinne Ríos RN; Reaction Status: Active ; Category: Drug ; Substance: No Known Allergies ; Type: Allergy ; Updated By: Corinne Ríos RN; Reviewed Date: 12/20/2021 12:32 EDT Vitals/Ht/Wt Temperature Oral : 37.1 degC Pulse Rate : 94 bpm Respiratory Rate : 20 br/min Systolic Blood Pressure : 133 mmHg Diastolic Blood Pressure : 88 mmHg SpO2 : 97 % Oxygen Therapy : Room air Pain Symptoms : Yes Numeric Pain Scale : 10 = Severe Pain VAS Pain Scale Age : VAS (8 yrs & older) Height/Length Dosing : 185.42 cm(Converted to: 6.08 ft, 73.00 in) Weight Measured Type of Scale : Patient Stated Weight Patient Stated Weight : 90.3 kg(Converted to: 3,185.24 oz, 199.08 lb) Corinne Ríos RN - 12/20/2021 12:32 EDT Normal [facility] XR KNEE LEFT 3 VIEWSon 12-20 XR KNEE LEFT 3 VIEWS Sex: Male. : 1995. Technique: 3 views of the left knee. Clinical history: PAIN. Findings: The knee joint is normal. The patellofemoral joint is normal. There is no suprapatellar bursal articular effusion. There is no fracture or dislocation. No destructive lesion. Impression: 1. No acute skeletal abnormality. Electronically signed by: Jarrett Roblero MD 12/20/2021 12:38 PM CDT Technologist: ANDERSON,JH,CMB Dictated By: JARRETT ROBLERO MD Signed By: JARRETT ROBLERO MD Signed Out: 12/20/21 13:38:27 Normal [facility] Vital Signs Date Time Vital Sign Value Performing Clinician Faci lity 06-20-2023 11:09-0500 Body height 185.42 cm [facility] 06-20-2023 11:09-0500 Body mass index (BMI) [Ratio] 32.5 kg/m2 [facility] 06-20-2023 11:09-0500 Body temperature 97.2 [degF] [facility] 06-20-2023 11:09-0500 Body weight 112.03 kg [facility] [facility] 11:09-0500 Diastolic blood pressure 89 mm[Hg] [facility] 06-20-2023 11:09-0500 Heart rate 93 /min [facility] 06-20-2023 11:09-0500 Respiratory rate 18 /min [facility] 06-20-2023 11:09-0500 SaO2% (BldA) [Mass fraction] 96 % [facility] 06-20-2023 11:09-0500 Systolic blood pressure 134 mm[Hg] [facility] Encounters Encounter Date Encounter Type Care Provider Facility Start: 06-20-2023 End: 06-20-2023 ambulatory [facility] Work Phone: Start: 06-20-2023 End: 06-20-2023 Patient encounter procedure [facility] Work Phone: Start: 04-02-2023 End: 04-03-2023 ambulatory Mikelus Katieytcassi Jimenezitis Facility:[facility]ELLE Christianson Start: 02-19-2023 End: 02-20-2023 ambulatory Androsemaryus Katieytnickolasas Barbaraitis Facility: [facility] Start: 01-29-2023 End: 01-30-2023 ambulatory Mikelus Katieytcassi Jimenezitis Facility: [facility] Start: 12-06-2022 End: 12-06-2022 ambulatory Melody Rice Facility:[facility] Start: 12-06-2022 End: 12-06-2022 ambulatory QUALITY CONTROL EXPERT-C Melody Rice Work Phone: [facility] Work Phone: Start: 12-06-2022 End: 12-06-2022 Patient encounter procedure QUALITY CONTROL EXPERT-C Melody Rice Work Phone: [facility] Work Phone: Procedures Date Procedure Procedure Detail Performing Clinician Start: 12-06-2022 Plain X-ray of left hand QUALITY CONTROL EXPERT-C Melody Rice Work Phone: Payers Date Payer Category Payer Self-pay 2022 Unknown 1995 Unknown [id number] 1995 Unknown [id number] 1995 Unknown [id number] 96 Unknown [id number] Worker's Compensation Industrial Self Ins [facility] [id number] Social History Date Type Detail Facility Tobacco smoking stat [facility] Unknown if ever smoked [facility] Work Phone: Start: 1995 Sex Assigned At Male [facility] Start: 06-20-2023 [facility] (finding) [facility] Clinical Note 12-20-2021 Note Date & Type Note Facility 12-20-2021 Note ED Nursing Discharge Summary Entered On: 12/20/2021 15:59 EDT Performed On: 12/20/2021 15:25 EDT by Ayah Brooke RN ND Information [id number] ED IV's : No IV ED IV Site Assessment : No IV ED Vitals Completed : Yes ED Final Assessment Completed : Yes ED Progress Note Completed : Yes Complete all PRN/Pain response forms? : Yes ED Disassociate Patient from Monitor : N/A Updated Depart Time : Yes ED Belongings sent w patient [id number] : Not applicable Ayah Brooke RN - 12/20/2021 15:58 EDT Education Instructions given to : Patient TeachBack Methodology : TeachBack, Explanation, Printed Material Barriers to Learning : None evident Ayah Brooke RN - 12/20/2021 15:58 EDT Post-Hospital Education Adult Grid Importance of Follow-Up Visits : Verbalizes understanding Pain Management : Verbalizes understanding Plan of Care : Verbalizes understanding Ayah Brooke RN - 12/20/2021 15:58 EDT ED Assistance Summary Assistance Given? : No Ayah Brooke RN - 12/20/2021 15:58 EDT [facility] Clinical Note 12-20-2021 Note Date & Type Note Facility 12-20-2021 Note Patient presents to the ED for evaluation of left knee pain s/p rebar hitting knee at work. No swelling to site. Denies numbness or tingling to left. Denies injury to any other site. Alert and oriented x3. No other needs at this time. Patient given discharge instructions and verbalizes understanding. Patient aware of follow up care and when to return to the ED. Patient provided urine sample for workman's comp with police department. Patient demonstrates appropriate use of crutches and verbalizes understanding of knee immobilizer. Patient given copies of workman's comp paperwork and aware original copies will be in medical chart. All questions answered. VSS. To lobby with steady gait. [facility] Evaluation note Note Date & Type Note Facility Evaluation note No assessment information availa [facility] Work Phone: Summary Purpose Family History No Family History Records FoundNo Family History Records FoundNo Family History Records Found Advance Directives Advance Directive Response Recorded Date/ Time Advance Directives No December 13, 023 9:09am Chief Complaint and Reason for Visit Chief Complaint R big toe swollen Additional Source Comments (unrecognized sect ion and content) No Status Records FoundNo Status Records FoundNo Status Records Found INFORMATION SOURCE (unrecogn ized section and content) DATE CREATED AUTHOR 12/28/2021 [facility] DATE CREATED AUTHOR AUTHOR'S ORGANIZ ATION 01/10/2023 [facility] DATE CREATED AUTHOR AUTHOR'S ORGANIZ ATION 04/06/2023 [facility] Care Teams (unrecognized sec tion and content) Team Status: Inactive Member Role Status Dates TERENCE Rodrigez Attending Provider Active Team Status: Active Member Role Status Dates PHYSICIAN NO FAMILY Primary Care Provider Active Team Status: Inactive Member Role Status Dates PHYSICIAN NO FAMILY Primary Care Provider Active Start: June 20, 2023 End: June 20, 2023 Cindy Bourgeois APRN Attending Provider Active S tart: June 20, 2023 End: June 20, 2023 Goals (unrecognized section and content) Goals may be documented in a n alternate sectionGoals may be documented in an alternate section FOR RECORDS PERTAINING TO PATIENTS WHO ARE OR HAVE BEEN ENROLLED IN A CHEMICAL DEPENDENCY/SUBSTANCEABUSE PROGRAM, SOME INFORMATION MAY BE OMITTED. This clinical summary was aggregated from multiple sources. Caution should be exercised in using it in the provision of clinical care. This summary normalizes information from multiple sources, and as a consequence, information in this document may materially change the coding, format and clinical context of patient data. In addition, data may be omitted in some cases. CLINICAL DECISIONS SHOULD BE BASED ON THE PRIMARY CLINICAL RECORDS. [facility]. provides no warranty or guarantee of the accuracy or completeness of information in this document.
== END 2023-11-29 14:17 | disposition home or self-care (01) ==
PROVIDERS: PCP Nurse Practitioner; Visit Provider Nurse Practitioner
DX: M54.50 Low back pain, unspecified (principal)
CPT/HCPCS: 72110

== ENCOUNTER 2023-12-06 13:32 | Outpatient (OUT) | payer BC, SELFPAY ==
--- OUTSIDE RECORDS SUMMARY | 2023-12-06 13:38 | XMS_ITS | CCD ---
Author Organization [facility] Care Team Providers Care Agricultural Equipment Sales Manager Name Role Phone TERENCE Rice Attending Provider [phone] Melody Rice Attending Unavailable Melody Rice Admitting [...] 3V*on 023 XR hand LT min 3V* [facility] [place] [address] XRay Report Signed Patient: Adilene Mtz MR#: [id number] : 1995 Acct:[id number] Age/Sex: 27 / M ADM Date: 12/06/22 Loc: XARLY Room: Type: [facility] Attending Dr: Melody PRATT Copies to: TERENCE [...] Luis Morgan M.D.12/06/2022 7:21 PM Dictation Location: [place] [address] Transcribed By: [facility] 12/06/221920 Dictated By: Jose Luis Morgan DO 12/06/221918 Signed By: 12/06/221920 [facility] ED Physician Reporton 2021 ED Physician Report [...] by pain), sensation intact, strong pedal pulses. Ruby coma scale Total score: Total score: 15. [...] with orthopedic (more content not included)... Normal [facility] APAP 325MG/OXYCODONE 5MG TAB on 12-20-2021 APAP [...] Brooke RN - 12/20/2021 15:25 EDT Normal [facility] Comment on above: Order Comment: Check for [...] Unknown Status : N/A Preferred Verbal : Swedish Corinne Ríos RN - 12/20/2021 12:33 EDT [...] PNED ; Probability: 0 ; Diagnosis Code: [id number] Procedure History ED Devices Present on Arrival [...] risk situation (congregated living, hemodialysis, infusion clinic, assisted, assisted living, custodial, homeless mcfp, etc.)? : No Corinne Ríos RN - 12/20/2021 12:33 EDT Normal [facility] ED Discharge Educationon ED Discharge Education Orthopedics [...] let your hands hang down, the hand sql server bi developer should be at your wrists. When you put your hands on the hand sql server bi developer, your elbows should be slightly bent. To [...] let your hands hang down, the hand sql server bi developer should be at your wrists. ? When you put your hands on the hand sql server bi developer, your elbows should be slightly bent. 1. [...] 1. To get up from a chair, fruit picker machine operator the crutches and put them in one [...] leg d (more content not included)... Normal [facility] ED Emergency Severity Index Adult-Texton 12-20-2021 ED Emergency Severity Index Adult-Text ANASTASIA - Adult Entered On: 12/20/2021 12:28 EDT Performed On: 12/20/2021 12:28 EDT by Corinne Ríos RN ANASTASIA DCP GENERIC CODE Visit Reason : left knee injury Tracking Triage Date/Time : 12/20/2021 12:28 EDT Tracking Reg Status : Requested Tracking Acuity : [id number] Tracking Group : SGEN Tracking Corinne Ríos RN - 12/20/2021 12:28 EDT Normal [facility] ED Nrsing Adlt Triage Sep Sc rning - Texton 12-20-2021 ED Nrsing Adlt Triage Sep Scrning - Text ED Nursing Adult Triage Sepsis Screening Tool Entered On: 12/20/2021 12:32 EDT Performed On: 12/20/2021 12:32 EDT by Corinne Ríos RN Adult Sepsis Screening Sepsis Infection Screening ED : No Corinne Ríos RN - 12/20/2021 12:32 EDT Normal [facility] ED Patient Summaryon 022 ED Patient Summary [facility] Emergency Department Discharge Instructions [address] [place] [address] \.br\(Patient Copy)\.br\ \.br\Name: ADILENE MTZ : 1995 \.br\Allergies: No Known Allergies\.br\Diagnos is: Diagnoses This Visit\.br\ Knee pain-swelling ([id number])\.br \ Left knee injury (S89.92XA)\.br\ Left knee sprain (S83.92XA)\.br\.br\ .br\ \.br\ Visit Date: 12/20/2021 12:13:15 \.br\ Current Date Time: 12/20/2021 15:59:23 \.br\Address: [facility] [facility] [address] \.br\ \.br\ \.br\Primary Care Provider: \.br\Name: NO FAMILY PHYSICIAN, 837\.br\Phone: \.br\ \.br\Emergency Department Care Providers: \.br\ Primary Physician: CHARISSA MCNULTY MD \.br\ \.br\ \.br\.br\Thank you for choosing [facility] for your emergency care. You are very important to us. Our goal is to demonstrate our high quality medical care, and provide you with a very good patient experience.\.br\.br\ You may receive a survey about our service. Please take the time to complete the survey and return it so we can continue to enhance our service.\.br\.br\Zana nk you again for allowing the [facility] to care for your medical needs. If you have questions about your care or follow up information please contact us at [phone].\.br\.b r\ Follow-Up Instructions\.br\____ _\.br\ADILENE MTZ has been given these follow-up instructions:\.br\.b r\.br\With: Address: When: \.br\YOSEF GREWAL, Orthopedics [address], [address] [place] [address]\.br\ Business (2) Within 3 to 5 days [...] let your hands hang down, the hand sql server bi developer should be at your wrists. When you put your hands on the hand sql server bi developer, your elbows should be slightly bent.\.br\To stay [...] let your hands hang down, the hand sql server bi developer should be at your wrists.\.br\? When you put your hands on the hand sql server bi developer, your elbows should be slightly bent.\.br\1. Put [...] walking.\.br\Take s (more content not included)... Normal [facility] ED Triage Adult-Texton 12-20 ED Triage Adult-Text [...] PNED ; Probability: 0 ; Diagnosis Code: [id number] (As Of: 12/20/2021 12:33:35 EDT) Allergies (Active) [...] Ríos RN - 12/20/2021 12:32 EDT Normal [facility] XR KNEE LEFT 3 VIEWSon 12-20 XR [...] ROBLERO MD Signed Out: 12/20/21 13:38:27 Normal [facility] Vital Signs Date Time Vital Sign Value Performing Clinician Faci lity 06-20-2023 11:09-0500 Body height 185.42 cm [facility] 06-20-2023 11:09-0500 Body mass index (BMI) [Ratio] 32.5 kg/m2 [facility] 06-20-2023 11:09-0500 Body temperature 97.2 [degF] [facility] 06-20-2023 11:09-0500 Body weight 112.03 kg [facility] 06-20-2023 11:09-0500 Diastolic blood pressure 89 mm[Hg] [facility] 06-20-2023 11:09-0500 Heart rate 93 /min [facility] 06-20-2023 11:09-0500 Respiratory rate 18 /min [facility] 06-20-2023 11:09-0500 SaO2% (BldA) [Mass fraction] 96 % [facility] 06-20-2023 11:09-0500 Systolic blood pressure 134 mm[Hg] [facility] Encounters Encounter Date Encounter Type Care Provider Facility Start: 06-20-2023 End: 06-20-2023 ambulatory [facility] Work Phone: Start: 06-20-2023 End: 06-20-2023 Patient encounter procedure [facility] Work Phone: Start: 04-02-2023 End: 04-03-2023 ambulatory Mikelus Katieytcassi Jimenezitis Facility:[facility] Start: 02-19-2023 End: 02-20-2023 ambulatory Androsemaryus Katieytnickolasas Barbaraitis Facility: [facility] Start: 01-29-2023 End: 01-30-2023 ambulatory Mikelus Katieytcassi Jimenezitis Facility: [facility] Start: 12-06-2022 End: 12-06-2022 ambulatory Melody Rice Facility:[facility] Start: 12-06-2022 End: 12-06-2022 ambulatory PHOTOGRAPHY PROFESSOR-C Melody Rice Work Phone: [facility] Work Phone: Start: 12-06-2022 End: 12-06-2022 Patient encounter procedure PHOTOGRAPHY PROFESSOR-C Melody Rice Work Phone: [facility] Work Phone: Procedures Date Procedure Procedure Detail Performing Clinician Start: 12-06-2022 Plain X-ray of left hand PHOTOGRAPHY PROFESSOR-C Melody Rice Work Phone: Payers Date Payer Category Payer Self-pay 2022 Unknown 1995 Unknown [id number] 1995 Unknown [id number] 96 1995 Unknown [id number] 96 Unknown [id number] Worker's Compensation Industrial Self Ins [facility] [id number] Social History Date Type Detail Facility Tobacco smoking stat [facility] Unknown if ever smoked [facility] Work Phone: Start: 1995 Sex Assigned At Male F [facility] Start: 06-20-2023 [facility] Clinical Note 12-20-2021 Note Date & Type Note Facility 12-20-2021 Note ED Nursing Discharge Summary Entered On: 12/20/2021 15:59 EDT Performed On: 12/20/2021 15:25 EDT by Ayah Brooke RN AR Information [id number] ED IV's : No IV ED IV Site Assessment : No IV ED Vitals Completed : Yes ED Final Assessment Completed : Yes ED Progress Note Completed : Yes Complete all PRN/Pain response forms? : Yes ED Disassociate Patient from Monitor : N/A Updated Depart Time : Yes ED Belongings sent w patient [id number] : Not applicable Ayah Brooke RN - [...] Ayah Brooke RN - 12/20/2021 15:58 EDT [facility] Clinical Note 12-20-2021 Note Date & [...] answered. VSS. To lobby with steady gait. [facility] Evaluation note Note Date & Type Note Facility Evaluation note No assessment information availa [facility] Work Phone: Summary Purpose Family History No [...] section and content) DATE CREATED AUTHOR 12/28/2021 [facility] DATE CREATED AUTHOR AUTHOR'S ORGANIZ ATION 01/10/2023 [facility] DATE CREATED AUTHOR AUTHOR'S ORGANIZ ATION 04/06/2023 [facility] Care Teams (unrecognized sec tion and content) [...] BE BASED ON THE PRIMARY CLINICAL RECORDS. [facility] [employer] [facility]. provides no warranty or guarantee of the accuracy or completeness of information in this document.
--- NOTE | 2023-12-06 14:26 | P.CN_ITS ---
Consult Note: HPI Data of Consult Patient: known to practice within the last 3 years Consult date: 01/29/23 Requesting Physician: Soha Mariano NP Primary Care Provider: Sharonda Lewis NP Consult Narrative Reason for consult: f/u Narrative: Pleasant 27yom who presents for evaluation of low back pain. Pt had completed chiropractic therapy, medrol dosepack, tizanidine without much relief now on cyclobenzaprine with mild relief. Engages in provider directed home exercise program for >6 weeks, with limited relief previously. Denies adverse medication side effects or loss of bowel or bladder control. Patient rating pain today 5- 6/10. JENNY Patient recently underwent bilateral L4/5 L5/S1 MBB#1 with 100% improvement while anesthetized and months following the injection. Pain has since returned and worsened. cc:: CC: Soha Mariano NP Review of Systems ROS Status of ROS 10 or more systems reviewed and unremark able except as noted in history and below Musculoskeletal Reports: [facility] Medical History (Updated 03/20/23 @ 15:06 by Fannie Hilario) Low back pain ?M54.50 - Low back pain, unspecified (ICD-10) Surgical History History of appendectomy ?Z90.49 - Acquired absence of other specified parts of digestive tract (ICD- 10) Meds Home Medications and Allergies Home Medications ?Medication ?Instructions ?Recorded ?Confirmed ?Type diclofenac sodium 75 mg 75 mg PO BID 01/29/23 04/02/23 History tablet,delayed release tizanidine 4 mg capsule 4 mg PO BID PRN muscle spasticity 01/29/23 04/02/23 History Allergies Allergy/AdvReac Type Severity Reaction Status Date / Time No Known Drug Allergies Allergy Verified 04/02/23 09:11 Exam Constitutional Documenting provider has reviewed patient's vital signs: yes Common normals: no apparent distress, oriented x3, healthy appearing, alert and well nourished General appearance: cooperative HENMT Common normals: normocephalic, hearing grossly normal bilaterally and moist oral mucous membranes Head and scalp: normocephalic Eye Common normals: PERRL Pupil: PERRL Neck & C-Spine Common normals: full ROM General: normal visual inspection Chest Common normals: inspection of chest normal Respiratory Common normals: normal respiratory effort, no retractions and no use of accessory muscles Back & Pelvis Lumbar spine/lower back: ROM limited, pain with ROM and straight leg raise negative bilaterally Other: bilateral facet loading positive axial back pain without radiculopathy pain over L4-5 L5-S1 facets Extremity Common normals: normal to inspection and full ROM Neuro Common normals: oriented x3, CN's II-XII intact bilaterally, moves all extremities, no focal motor deficits, no sensory deficits noted and deep tendon reflexes 2+ bilaterally Sensorium/orientation: alert Motor exam: strength 5/5 throughout and no movement abnormalities noted Psych Common normals: mental status grossly normal, thought process normal, coopera tive, affect normal, speech normal and activity/motor behavior normal Speech: normal speech Thought process: normal thought process Results Additional Findings Additional findings: If on a controlled substance or opioids, I have checked an [place]AR[place] report on this patient and there are no aberrancies noted in the prescribing history.??If on a controlled substance or opioid a drug screen was completed and reviewed within the last year, and if there has not been a drug screen completed we ordered one today to monitor higher risk, state monitored pain medication use. As part of providing excellent, safe, comprehensive care, the following was completed at our patient's visit: 1. A medication reconciliation and review to ensure accurate knowledge of current/active medications, including asking our patients to inform us about any [id number] medications or herbal remedies/nutritional supplements/alternative remedies. 2. A review to specifically ensure our patients have had annual screening for screening for depression, screening for tobacco use, and screening for unhealthy alcohol use. For concerning screenings had a discussion with the patient, provided patient education, and recommended follow-up with primary care provider when appropriate. If patient noted with a risk of falling, they received education on strength, gait, and balance training to prevent future risk of falling. Assessment and Plan Assessment and Plan (1) Lumbar spondylosis: Assessment and Plan: The patient has had over 3 months of moderate to severe low back pain with functional impairment and inadequate response to conservative care including NSAIDS (unless there are contraindication such as concurrent blood thinners), multiple oral or topical pain medications, and home exercise program/physical therapy.? Patient has completed >6 weeks of guided home exercise program and/or formal physical therapy program without relief of their symptoms. ? We discussed the risks and benefits of the procedure with the patient ?The procedure will be completed with fluoroscopic guidance.? (2) Lumbar disc displacement without myelopathy: Plan -bilateral L4-5 L5-S1 MBB #2 working towards a thermal RFA -continue cyclobenzaprine, encouraged BID. can call to change to tizanidine or baclofen if needed -can consider steroid rotation and repeat lumbar TFESI if he does not respond well to MBB -continue HEP as tolerated -f/u after injection
== END 2023-12-06 13:33 | disposition home or self-care (01) ==
PROVIDERS: PCP Nurse Practitioner; Visit Provider Nurse Practitioner
DX: M47.816 Spondylosis without myelopathy or radiculopathy, lumbar region (principal); M51.26 Other intervertebral disc displacement, lumbar region
CPT/HCPCS: G0463

== ENCOUNTER 2023-12-24 06:53 | Day surgery (SDC) | payer BC, SELFPAY ==
--- OUTSIDE RECORDS SUMMARY | 2023-12-24 06:55 | XMS_ITS | CCD ---
Author Organization [facility] Care Team Providers Care Methods Time Analyst Name Role Phone TERENCE Rice Attending Provider [...] 3V*on 023 XR hand LT min 3V* [facility] [place] [address] XRay Report Signed Patient: Adilene Mtz MR#: [id number] : 1995 Acct:[id number] Age/Sex: 27 / M ADM Date: 12/06/22 Loc: XTNLY Room: Type: [facility] Attending Dr: Melody PRATT Copies to: TERENCE [...] Luis Morgan M.D.12/06/2022 7:21 PM Dictation Location: [place] [address] Transcribed By: [facility] 12/06/221920 Dictated By: Jose Luis Morgan DO 12/06/221918 Signed By: 12/06/221920 [facility] ED Physician Reporton 2021 ED Physician Report [...] with orthopedic (more content not included)... Normal [facility] APAP 325MG/OXYCODONE 5MG TAB on [...] Brooke RN - 12/20/2021 15:25 EDT Normal [facility] Comment on above: Order Comment: [...] Unknown Status : N/A Preferred Verbal : Colombian Corinne Ríos RN - 12/20/2021 12:33 EDT [...] PNED ; Probability: 0 ; Diagnosis Code: [id number] Procedure History ED Devices Present on Arrival [...] risk situation (congregated living, hemodialysis, infusion clinic, skilled nursing, assisted living, halfway, homeless longterm, etc.)? : No Corinne Ríos RN - 12/20/2021 12:33 EDT Normal [facility] ED Discharge Educationon ED Discharge [...] let your hands hang down, the hand tapper supervisor should be at your wrists. When you put your hands on the hand tapper supervisor, your elbows should be slightly bent. To [...] let your hands hang down, the hand tapper supervisor should be at your wrists. ? When you put your hands on the hand tapper supervisor, your elbows should be slightly bent. 1. [...] 1. To get up from a chair, order picker the crutches and put them in [...] leg d (more content not included)... Normal [facility] ED Emergency Severity Index Adult-Texton 12-20-2021 ED Emergency Severity Index Adult-Text ANASTASIA - Adult Entered On: 12/20/2021 12:28 EDT Performed On: 12/20/2021 12:28 EDT by Corinne Ríos RN ANASTASIA DCP GENERIC CODE Visit Reason : left knee injury Tracking Triage Date/Time : 12/20/2021 12:28 EDT Tracking Reg Status : Requested Tracking Acuity : [id number] Tracking Group : [id number] Tracking Corinne Ríos RN - 12/20/2021 12:28 EDT Normal [facility] ED Nrsing Adlt Triage Sep Sc rning - Texton 12-20-2021 ED Nrsing Adlt Triage Sep Scrning - Text ED Nursing Adult Triage Sepsis Screening Tool Entered On: 12/20/2021 12:32 EDT Performed On: 12/20/2021 12:32 EDT by Corinne Ríos RN Adult Sepsis Screening Sepsis Infection Screening ED : No Corinne Ríos RN - 12/20/2021 12:32 EDT Normal [facility] ED Patient Summaryon 022 ED Patient Summary [facility] Emergency Department Discharge Instructions [address] [place] [address] \.br\(Patient Copy)\.br\ \.br\Name: ADILENE MTZ : 1995 \.br\Allergies: No Known Allergies\.br\Diagnos is: Diagnoses This Visit\.br\ Knee pain-swelling ([id number])\.br \ Left knee injury (S89.92XA)\.br\ Left knee sprain (S83.92XA)\.br\.br\ .br\ \.br\ Visit Date: 12/20/2021 12:13:15 \.br\ Current Date Time: 12/20/2021 15:59:23 \.br\Address: [facility] [facility] [address] \.br\ \.br\ \.br\Primary Care Provider: \.br\Name: NO FAMILY PHYSICIAN, 837\.br\Phone: \.br\ \.br\Emergency Department Care Providers: \.br\ Primary Physician: CHARISSA MCNULTY MD \.br\ \.br\ \.br\.br\Thank you for choosing [facility] for your emergency care. You are very important to us. Our goal is to demonstrate our high quality medical care, and provide you with a very good patient experience.\.br\.br\ You may receive a survey about our service. Please take the time to complete the survey and return it so we can continue to enhance our service.\.br\.br\Zana nk you again for allowing the [facility] Emergency Department to care for your medical needs. If you have questions about your care or follow up information please contact us at [phone].\.br\.b r\ Follow-Up Instructions\.br\____ _\.br\ADILENE MTZ has been given these follow-up instructions:\.br\.b r\.br\With: Address: When: \.br\[facility], Orthoped[facility] [address], [address] [place] [address]\.br\ Business (2) Within 3 to 5 days [...] let your hands hang down, the hand tapper supervisor should be at your wrists. When you put your hands on the hand tapper supervisor, your elbows should be slightly bent.\.br\To stay [...] let your hands hang down, the hand tapper supervisor should be at your wrists.\.br\? When you put your hands on the hand tapper supervisor, your elbows should be slightly bent.\.br\1. Put [...] walking.\.br\Take s (more content not included)... Normal [facility] ED Triage Adult-Texton 12-20 ED [...] PNED ; Probability: 0 ; Diagnosis Code: [id number] (As Of: 12/20/2021 12:33:35 EDT) Allergies (Active) [...] Ríos RN - 12/20/2021 12:32 EDT Normal [facility] XR KNEE LEFT 3 VIEWSon [...] ROBLERO MD Signed Out: 12/20/21 13:38:27 Normal [facility] Vital Signs Date Time Vital Sign Value Performing Clinician Faci lity 06-20-2023 11:09-0500 Body height 185.42 cm [facility] 06-20-2023 11:09-0500 Body mass index (BMI) [Ratio] 32.5 kg/m2 [facility] 06-20-2023 11:09-0500 Body temperature 97.2 [degF] [facility] 06-20-2023 11:09-0500 Body weight 112.03 kg [facility] 06-20-2023 11:09-0500 Diastolic blood pressure 89 mm[Hg] [facility] 06-20-2023 11:09-0500 Heart rate 93 /min [facility] 06-20-2023 11:09-0500 Respiratory rate 18 /min [facility] 06-20-2023 11:09-0500 SaO2% (BldA) [Mass fraction] 96 % [facility] 06-20-2023 11:09-0500 Systolic blood pressure 134 mm[Hg] [facility] Encounters Encounter Date Encounter Type Care Provider Facility Start: 06-20-2023 End: 06-20-2023 ambulatory [facility] Work Phone: Start: 06-20-2023 End: 06-20-2023 Patient encounter procedure [facility] Work Phone: Start: 04-02-2023 End: 04-03-2023 ambulatory Mikelus Katieytcassi Jimenezitis Facility:[facility] Start: 02-19-2023 End: 02-20-2023 ambulatory Androsemaryus Katieytnickolasas Barbaraitis Facility: [facility] Start: 01-29-2023 End: 01-30-2023 ambulatory Mikelus Katieytcassi Jimenezitis Facility: [facility] Start: 12-06-2022 End: 12-06-2022 ambulatory Melody Rice Facility:[facility] Start: 12-06-2022 End: 12-06-2022 ambulatory [facility] Melody Rice Work Phone: [facility] Work Phone: Start: 12-06-2022 End: 12-06-2022 Patient encounter procedure [facility] Melody Rice Work Phone: [facility] Work Phone: Procedures Date Procedure Procedure Detail Performing Clinician Start: 12-06-2022 Plain X-ray of left hand [facility] Melody Rice Work Phone: Payers Date Payer Category Payer Self-pay 2022 Unknown 1995 Unknown [id number] 1995 Unknown [id number] 1995 Unknown [id number] Unknown [id number] Worker's Compensation [employer] [facility] [id number] Social History Date Type Detail Facility Tobacco smoking stat [facility] Unknown if ever smoked [facility] Work Phone: Start: 1995 Sex Assigned At Male [facility] Start: 06-20-2023 [facility] Clinical Note 12-20-2021 Note Date & Type Note Facility 12-20-2021 Note ED Nursing Discharge Summary Entered On: 12/20/2021 15:59 EDT Performed On: 12/20/2021 15:25 EDT by Ayah Brooke RN [place] Information [id number] ED IV's : No IV ED IV Site Assessment : No IV ED Vitals Completed : Yes ED Final Assessment Completed : Yes ED Progress Note Completed : Yes Complete all PRN/Pain response forms? : Yes ED Disassociate Patient from Monitor : N/A Updated Depart Time : Yes ED Belongings sent w patient 020006 : Not applicable Ayah Brooke RN - [...] Ayah Brooke RN - 12/20/2021 15:58 EDT [facility] Clinical Note 12-20-2021 Note Date [...] answered. VSS. To lobby with steady gait. [facility] Evaluation note Note Date & Type Note Facility Evaluation note No assessment information availa [facility] Work Phone: Summary Purpose Family History [...] section and content) DATE CREATED AUTHOR 12/28/2021 [facility] DATE CREATED AUTHOR AUTHOR'S ORGANIZ ATION 01/10/2023 [facility] DATE CREATED AUTHOR AUTHOR'S ORGANIZ ATION 04/06/2023 [facility] Care Teams (unrecognized sec tion and [...] BE BASED ON THE PRIMARY CLINICAL RECORDS. [facility] [employer] [facility] provides no warranty or guarantee of the accuracy or completeness of information in this document.
[2023-12-24 07:21] VITALS: BP 131/89; PULSE 70; TEMP 36.3; O2SAT 99
[2023-12-24] MEDS: LIDOCAINE HCL 2% 400 MG/20 ML MDV INJ (07:55)
[2023-12-24] MEDS: BUPIVACAINE HCL 0.25% PF 25 MG/10 ML VIAL 8 ML INJ (07:55)
[2023-12-24 07:58] VITALS: BP 118/81; BP 119/82; PULSE 59; PULSE 62; O2SAT 95; O2SAT 96
--- NOTE | 2023-12-24 07:58 | W.PM.PROCNOT ---
Date of procedure: 12/24/23 Pre-op diagnosis: Pain due to lumbar spondylosis without myelopathy Post-op diagnosis: same as pre-op Procedure: Procedure: Bilateral L4-5, l5-S1 medial branch block Medications: Bupivacaine 0.25% 6cc The patient was seen and examined in the preoperative holding area.? An informed consent was obtained and placed on the chart.? The patient was brought to the medical procedure unit and placed in the prone position.? A timeout was completed verifying correct patient, procedure site, positioning, plan, and special equipment.? Using aseptic technique, the needle was placed at left L4. Under direct fluoroscopic visualization a Quincke-tipped spinal needle was advanced to the junction of the superior articulating process with the transverse process at the designated medial branch segment.? Preceded by negative aspiration, the above-mentioned injectate was placed in 1 mL aliquots.? The procedure was repeated at left L5, S1.? The needle was removed and insertion site was covered. The same procedure, at the same levels, was completed on the right side. The patient was taken to the postprocedural recovery area and monitored for an appropriate length of time before found suitable for discharge in the company of a responsible adult. Anesthesia: Local Surgeon: Steve Rene Pathology: none sent Condition: stable Disposition: no change
== END 2023-12-24 08:00 | disposition home or self-care (01) ==
LOC: SURGOUT 06:54
PROVIDERS: PCP Nurse Practitioner; Visit Provider Anesthesiology
DX: M47.816 Spondylosis without myelopathy or radiculopathy, lumbar region (principal)
CPT/HCPCS: 64493; 64494; J0665

== ENCOUNTER 2023-12-26 08:29 | Outpatient (OUT) | payer BC, SELFPAY ==
--- NOTE | 2023-12-26 08:38 | P.CN_ITS ---
Consult Note: HPI Data of Consult Patient: known to practice within the last 3 years Consult date: 01/29/23 Requesting Physician: Soha Mariano NP Primary Care Provider: Sharonda Lewis NP Consult Narrative Reason for consult: f/u Narrative: Pleasant 28yom who presents for evaluation of low back pain. Pt had completed chiropractic therapy, medrol dosepack, tizanidine without much relief now on cyclobenzaprine with mild relief. Engages in provider directed home exercise program for >6 weeks, with limited relief previously. Denies adverse medication side effects or loss of bowel or bladder control. Patient rating pain today 5- 6/10. JENNY Patient recently underwent bilateral L4/5 L5/S1 MBB#1 and #2 with >80% improvement in pain and functional ability greater than 24 hours. cc:: CC: Soha Mariano NP Review of Systems ROS Status of ROS 10 or more systems reviewed and unremark able except as noted in history and below Musculoskeletal Reports: back pain [facility] Medical History (Updated 12/26/23 @ 08:44 by Soha Mariano NP) Low back pain ?M54.50 - Low back pain, unspecified (ICD-10) Surgical History History of appendectomy ?Z90.49 - Acquired absence of other specified parts of digestive tract (ICD- 10) Meds Home Medications and Allergies Home Medications ?Medication ?Instructions ?Recorded ?Confirmed ?Type diclofenac sodium 75 mg 75 mg PO BID 01/29/23 12/24/23 History tablet,delayed release tizanidine 4 mg capsule 4 mg PO BID PRN muscle spasticity 01/29/23 12/24/23 History Allergies Allergy/AdvReac Type Severity Reaction Status Date / Time No Known Drug Allergies Allergy Verified 12/24/23 07:19 Exam Constitutional Documenting provider has reviewed patient's vital signs: yes Common normals: no apparent distress, oriented x3, healthy appearing, alert and well nourished General appearance: cooperative HENMT Common normals: normocephalic, hearing grossly normal bilaterally and moist oral mucous membranes Head and scalp: normocephalic Eye Common normals: PERRL Pupil: PERRL Neck & C-Spine Common normals: full ROM General: normal visual inspection Chest Common normals: inspection of chest normal Respiratory Common normals: normal respiratory effort, no retractions and no use of accessory muscles Back & Pelvis Lumbar spine/lower back: ROM limited, pain with ROM and straight leg raise negative bilaterally Other: bilateral facet loading positive axial back pain without radiculopathy pain over L4-5 L5-S1 facets Extremity Common normals: normal to inspection and full ROM Neuro Common normals: oriented x3, CN's II-XII intact bilaterally, moves all extremities, no focal motor deficits, no sensory deficits noted and deep tendon reflexes 2+ bilaterally Sensorium/orientation: alert Motor exam: strength 5/5 throughout and no movement abnormalities noted Psych Common normals: mental status grossly normal, thought process normal, cooperative, affect normal, speech normal and activity/motor behavior normal Speech: normal speech Thought process: normal thought process Results Additional Findings Additional findings: If on a controlled substance or opioids, I have checked an [place]AR[place] report on this patient and there are no aberrancies noted in the prescribing history.??If on a controlled substance or opioid a drug screen was completed and reviewed within the last year, and if there has not been a drug screen completed we ordered one today to monitor higher risk, state monitored pain medication use. As part of providing excellent, safe, comprehensive care, the following was completed at our patient's visit: 1. A medication reconciliation and review to ensure accurate knowledge of current/active medications, including asking our patients to inform us about any [id number] medications or herbal remedies/nutritional supplements/alternative remedies. 2. A review to specifically ensure our patients have had annual screening for screening for depression, screening for tobacco use, and screening for unhealthy alcohol use. For concerning screenings had a discussion with the patient, provided patient education, and recommended follow-up with primary care provider when appropriate. If patient noted with a risk of falling, they received education on strength, gait, and balance training to prevent future risk of falling. Assessment and Plan Assessment and Plan (1) Lumbar spondylosis: Assessment and Plan: The patient has had over 3 months of moderate to severe low back pain with functional impairment and inadequate response to conservative care including NSAIDS (unless there are contraindication such as concurrent blood thinners), multiple oral or topical pain medications, and home exercise program/physical therapy.? Patient has completed >6 weeks of guided home exercise program and/or formal physical therapy program without relief of their symptoms. ? We discussed the risks and benefits of the procedure with the patient ?The procedure will be completed with fluoroscopic guidance.? (2) Lumbar disc displacement without myelopathy: (3) Myalgia: Plan -bilateral L4-5 L5-S1 facet joint RFA -continue cyclobenzaprine HS PRN -continue HEP as tolerated -f/u 1 month after RFA complete
--- OUTSIDE RECORDS SUMMARY | 2023-12-26 08:39 | XMS_ITS | CCD ---
Author Organization [facility] Care Team Providers Care Tank Truck Mechanic Name Role Phone TERENCE Rice Attending Provider [...] 3V*on 023 XR hand LT min 3V* [facility] [place] [address] XRay Report Signed Patient: Adilene Mtz MR#: [id number] : 1995 Acct:[id number] Age/Sex: 27 / M ADM Date: 12/06/22 Loc: XCALY Room: Type: [facility] Attending Dr: Melody PRATT Copies to: [...] Luis Morgan M.D.12/06/2022 7:21 PM Dictation Location: [place] [address] Transcribed By: [facility] 12/06/221920 Dictated By: Jose Luis Morgan DO 12/06/221918 Signed By: 12/06/221920 [facility] ED Physician Reporton 2021 ED Physician [...] with orthopedic (more content not included)... Normal [facility] APAP 325MG/OXYCODONE 5MG TAB on [...] Brooke RN - 12/20/2021 15:25 EDT Normal [facility] Comment on above: Order Comment: [...] Unknown Status : N/A Preferred Verbal : [place]dean Corinne Ríos RN - 12/20/2021 12:33 EDT [...] of Problem: No Chronic Problems ; Recorder: Coirnne Ríos RN; Code: NKP ; Last Updated: 12/20/2021 12:32 EDT ; Life Cycle Date: 12/20/2021 ; Life Cycle Status: Active ; Vocabulary: Faye Diagnoses(Active) Knee pain-swelling Date: 12/20/2021 ; Diagnosis Type: Reason For Visit ; Confirmation: Confirmed ; Clinical Dx: Knee pain-swelling ; Classification: Medical ; Clinical Service: Emergency medicine ; Code: PNED ; Probability: 0 ; Diagnosis Code: [id number] Procedure History ED Devices Present on Arrival [...] living, hemodialysis, infusion clinic, assisted, assisted living, senior care, homeless senior care, etc.)? : No Corinne Ríos RN - 12/20/2021 12:33 EDT Normal [facility] ED Discharge Educationon ED Discharge [...] let your hands hang down, the hand telegraphic typewriter repairer should be at your wrists. When you put your hands on the hand telegraphic typewriter repairer, your elbows should be slightly bent. To [...] let your hands hang down, the hand telegraphic typewriter repairer should be at your wrists. ? When you put your hands on the hand telegraphic typewriter repairer, your elbows should be slightly bent. 1. [...] 1. To get up from a chair, continuous pickling line pickler the crutches and put them in one [...] leg d (more content not included)... Normal [facility] ED Emergency Severity Index Adult-Texton 12-20-2021 ED Emergency Severity Index Adult-Text ANASTASIA - Adult Entered On: 12/20/2021 12:28 EDT Performed On: 12/20/2021 12:28 EDT by Corinne Ríos RN ANASTASIA DCP GENERIC CODE Visit Reason : left knee injury Tracking Triage Date/Time : 12/20/2021 12:28 EDT Tracking Reg Status : Requested Tracking Acuity : [id number] Tracking Group : [id number] Tracking Corinne Ríos RN - 12/20/2021 12:28 EDT Normal [facility] ED Nrsing Adlt Triage Sep Sc rning - Texton 12-20-2021 ED Nrsing Adlt Triage Sep Scrning - Text ED Nursing Adult Triage Sepsis Screening Tool Entered On: 12/20/2021 12:32 EDT Performed On: 12/20/2021 12:32 EDT by Corinne Ríos RN Adult Sepsis Screening Sepsis Infection Screening ED : No Corinne Ríos RN - 12/20/2021 12:32 EDT Normal [facility] ED Patient Summaryon 022 ED Patient Summary [facility] Emergency Department Discharge Instructions [address] [place] [address] \.br\(Patient Copy)\.br\ \.br\Name: ADILENE MTZ : 1995 \.br\Allergies: No Known Allergies\.br\Diagnos is: Diagnoses This Visit\.br\ Knee pain-swelling ([id number])\.br \ Left knee injury (S89.92XA)\.br\ Left knee sprain (S83.92XA)\.br\.br\ .br\ \.br\ Visit Date: 12/20/2021 12:13:15 \.br\ Current Date Time: 12/20/2021 15:59:23 \.br\Address: [facility] [address] \.br\ \.br\ \.br\Primary Care Provider: \.br\Name: NO FAMILY PHYSICIAN, 837\.br\Phone: \.br\ \.br\Emergency Department Care Providers: \.br\ Primary Physician: CHARISSA MCNULTY MD \.br\ \.br\ \.br\.br\Thank you for choosing [facility] for your emergency care. You are very important to us. Our goal is to demonstrate our high quality medical care, and provide you with a very good patient experience.\.br\.br\ You may receive a survey about our service. Please take the time to complete the survey and return it so we can continue to enhance our service.\.br\.br\Zana nk you again for allowing the [facility] Emergency Department to care for your medical needs. If you have questions about your care or follow up information please contact us at [phone].\.br\.b r\ Follow-Up Instructions\.br\____ _\.br\ADILENE MTZ has been given these follow-up instructions:\.br\.b r\.br\With: Address: When: \.br\YOSEF GREWAL, Orthopedics [address] [place] [address]\.br\ Business (2) Within 3 to 5 days [...] let your hands hang down, the hand telegraphic typewriter repairer should be at your wrists. When you put your hands on the hand telegraphic typewriter repairer, your elbows should be slightly bent.\.br\To stay [...] let your hands hang down, the hand telegraphic typewriter repairer should be at your wrists.\.br\? When you put your hands on the hand telegraphic typewriter repairer, your elbows should be slightly bent.\.br\1. Put [...] walking.\.br\Take s (more content not included)... Normal [facility] ED Triage Adult-Texton 12-20 ED [...] PNED ; Probability: 0 ; Diagnosis Code: [id number] (As Of: 12/20/2021 12:33:35 EDT) Allergies (Active) [...] Ríos RN - 12/20/2021 12:32 EDT Normal [facility] XR KNEE LEFT 3 VIEWSon [...] ROBLERO MD Signed Out: 12/20/21 13:38:27 Normal [facility] Vital Signs Date Time Vital Sign Value Performing Clinician Faci lity 06-20-2023 11:09-0500 Body height 185.42 cm [facility] 06-20-2023 11:09-0500 Body mass index (BMI) [Ratio] 32.5 kg/m2 [facility] 06-20-2023 11:09-0500 Body temperature 97.2 [degF] [facility] 06-20-2023 11:09-0500 Body weight 112.03 kg [facility] 06-20-2023 11:09-0500 Diastolic blood pressure 89 mm[Hg] [facility] 06-20-2023 11:09-0500 Heart rate 93 /min [facility] 06-20-2023 11:09-0500 Respiratory rate 18 /min [facility] 06-20-2023 11:09-0500 SaO2% (BldA) [Mass fraction] 96 % [facility] 06-20-2023 11:09-0500 Systolic blood pressure 134 mm[Hg] [facility] Encounters Encounter Date Encounter Type Care Provider Facility Start: 06-20-2023 End: 06-20-2023 ambulatory [facility] Work Phone: Start: 06-20-2023 End: 06-20-2023 Patient encounter procedure [facility] Work Phone: Start: 04-02-2023 End: 04-03-2023 ambulatory Mikelus Katieytcassi Jimenezitis Facility:[facility] Start: 02-19-2023 End: 02-20-2023 ambulatory Androsemaryus Katieytnickolasas Barbaraitis Facility: [facility] Start: 01-29-2023 End: 01-30-2023 ambulatory Mikelus Katieytcassi Jimenezitis Facility: [facility] Start: 12-06-2022 End: 12-06-2022 ambulatory Melody Rice Facility:[facility] Start: 12-06-2022 End: 12-06-2022 ambulatory [facility] Melody Rice Work Phone: [facility] Work Phone: Start: 12-06-2022 End: 12-06-2022 Patient encounter procedure [facility] Melody Rice Work Phone: [facility] Work Phone: Procedures Date Procedure Procedure Detail Performing Clinician Start: 12-06-2022 Plain X-ray of left hand [facility] Melody Rice Work Phone: Payers Date Payer Category Payer Self-pay 2022 Unknown 1995 Unknown [id number] 1995 Unknown [id number] 1995 Unknown [id number] 96 Unknown [id number] Worker's Compensation Industrial Self Ins [facility] [id number] Social History Date Type Detail Facility Tobacco smoking stat [facility] Unknown if ever smoked [facility] Work Phone: Start: 1995 Sex Assigned At Male F [facility] Start: 06-20-2023 [facility] Clinical Note 12-20-2021 Note Date & Type Note Facility 12-20-2021 Note ED Nursing Discharge Summary Entered On: 12/20/2021 15:59 EDT Performed On: 12/20/2021 15:25 EDT by Ayah Brooke RN [place] Information [id number] ED IV's : No IV ED IV Site Assessment : No IV ED Vitals Completed : Yes ED Final Assessment Completed : Yes ED Progress Note Completed : Yes Complete all PRN/Pain response forms? : Yes ED Disassociate Patient from Monitor : N/A Updated Depart Time : Yes ED Belongings sent w patient [id number] : Not applicable Ayah Brooke RN - [...] Ayah Brooke RN - 12/20/2021 15:58 EDT [facility] Clinical Note 12-20-2021 Note Date [...] answered. VSS. To lobby with steady gait. [facility] Evaluation note Note Date & Type Note Facility Evaluation note No assessment information availa [facility] Work Phone: Summary Purpose Family History No [...] section and content) DATE CREATED AUTHOR 12/28/2021 [facility] DATE CREATED AUTHOR AUTHOR'S ORGANIZ ATION 01/10/2023 [facility] DATE CREATED AUTHOR AUTHOR'S ORGANIZ ATION 04/06/2023 [facility] Care Teams (unrecognized sec tion and [...] BE BASED ON THE PRIMARY CLINICAL RECORDS. [facility] [employer] [facility]. provides no warranty or guarantee of the accuracy or completeness of information in this document.
== END 2023-12-26 08:30 | disposition home or self-care (01) ==
LOC: PM 08:29
PROVIDERS: PCP Nurse Practitioner; Visit Provider Nurse Practitioner
DX: M47.816 Spondylosis without myelopathy or radiculopathy, lumbar region (principal); M51.26 Other intervertebral disc displacement, lumbar region; M79.10 Myalgia, unspecified site
CPT/HCPCS: G0463

== ENCOUNTER 2024-01-14 08:40 | Day surgery (SDC) | payer BC, SELFPAY ==
--- OUTSIDE RECORDS SUMMARY | 2024-01-14 08:44 | XMS_ITS | CCD ---
Author Organization [facility] Care Team Providers Care Logistics Engineer Name Role Phone TERENCE Rice Attending Provider Melody Rice Attending Unavailable Melody Rice Admitting Unavailable NO FAMILY, PHYSICIAN Primary Care Unavailable Gikranthiitis , Steve Gay Attending Unavailable Giedraitis , Steve Gay Attending Unavailable Giedraitis , Steve Gay Attending Unavailable Gikranthiitis , Steve Gay Attending Unavailable Problems Problem Classification Problem Date Documented Da te Episodic/Chronic Unclassified (1 source) Pain in left hand; Translations: [Pain in left hand] Onset: 12-06-2022 Results Test Name Value Interpretation Reference Range Facil ity XR hand LT min 3V*on 023 XR hand LT min 3V* [facility] Main [place] [id number] XRay Report Signed Patient: Adilene Mtz MR#: [id number] : 1995 Acct:[id number] Age/Sex: 27 / M ADM Date: 12/06/22 Loc: XDCLY Room: Type: [facility] Attending Dr: Melody PRATT Copies to: [...] Luis Morgan M.D.12/06/2022 7:21 PM Dictation Location: [place] [address] Transcribed By: [facility] 12/06/221920 Dictated By: Jose Luis Morgan DO 12/06/221918 Signed By: 12/06/221920 [facility] ED Physician Reporton 2021 ED Physician [...] by pain), sensation intact, strong pedal pulses. [place] coma scale Total score: Total score: 15. [...] with orthopedic (more content not included)... Normal [facility] APAP 325MG/OXYCODONE 5MG TAB on 12-20-2021 [...] Brooke RN - 12/20/2021 15:25 EDT Normal [facility] Comment on above: Order Comment: Check [...] Unknown Status : N/A Preferred Verbal : Mexican Corinne Ríos RN - 12/20/2021 12:33 EDT [...] Problem List Problem List obtained from : Corinne Hayes RN - 12/20/2021 12:33 EDT (As Of: 12/20/2021 12:34:27 EDT) Problems(Active) No Chronic Problems (Madainer :ARPAN ) Name of Problem: No Chronic Problems [...] PNED ; Probability: 0 ; Diagnosis Code: [id number] Procedure History ED Devices Present on Arrival To ED : None Urinary Catheter Present on Admit to ED : No Corinne Ríos RN - 12/20/2021 12:33 EDT - Procedure History (As Of: 12/20/2021 12:34:27 EDT) Social History Does pt have any alcohol,drugs or tobacco : No Do you consume Alcohol : No Social History obtained from : Corinne Hayes RN - 12/20/2021 12:33 EDT Social History [...] hemodialysis, infusion clinic, skilled nursing, assisted living, skilled nursing, homeless group home, etc.)? : No Corinne Ríos RN - 12/20/2021 12:33 EDT Normal [facility] ED Discharge Educationon ED Discharge Education [...] let your hands hang down, the hand product advisor should be at your wrists. When you put your hands on the hand product advisor, your elbows should be slightly bent. To [...] let your hands hang down, the hand product advisor should be at your wrists. ? When you put your hands on the hand product advisor, your elbows should be slightly bent. 1. [...] 1. To get up from a chair, picking supervisor the crutches and put them in one [...] leg d (more content not included)... Normal [facility] ED Emergency Severity Index Adult-Texton 12-20-2021 ED Emergency Severity Index Adult-Text ANASTASIA - Adult Entered On: 12/20/2021 12:28 EDT Performed On: 12/20/2021 12:28 EDT by Corinne Ríos RN ANASTASIA DCP GENERIC CODE Visit Reason : left knee injury Tracking Triage Date/Time : 12/20/2021 12:28 EDT Tracking Reg Status : Requested Tracking Acuity : [id number] Tracking Group : [id number] Tracking Corinne Ríos RN - 12/20/2021 12:28 EDT Normal [facility] ED Nrsing Adlt Triage Sep Sc rning - Texton 12-20-2021 ED Nrsing Adlt Triage Sep Scrning - Text ED Nursing Adult Triage Sepsis Screening Tool Entered On: 12/20/2021 12:32 EDT Performed On: 12/20/2021 12:32 EDT by Corinne Ríos RN Adult Sepsis Screening Sepsis Infection Screening ED : No Corinne Ríos RN - 12/20/2021 12:32 EDT Normal [facility] ED Patient Summaryon 022 ED Patient Summary [facility] Emergency Department Discharge Instructions [address] [place] [address] \.br\(Patient Copy)\.br\ \.br\Name: ADILENE MTZ : 1995 \.br\Allergies: No Known Allergies\.br\Diagnos is: Diagnoses This Visit\.br\ Knee pain-swelling ([id number])\.br \ Left knee injury (S89.92XA)\.br\ Left knee sprain (S83.92XA)\.br\.br\ .br\ \.br\ Visit Date: 12/20/2021 12:13:15 \.br\ Current Date Time: 12/20/2021 15:59:23 \.br\Address: [address] [facility] [facility] [address] \.br\ \.br\ \.br\Primary Care Provider: \.br\Name: NO FAMILY PHYSICIAN, 837\.br\Phone: \.br\ \.br\Emergency Department Care Providers: \.br\ Primary Physician: CHARISSA MCNULTY MD \.br\ \.br\ \.br\.br\Thank you for choosing [facility] for your emergency care. You are very important to us. Our goal is to demonstrate our high quality medical care, and provide you with a very good patient experience.\.br\.br\ You may receive a survey about our service. Please take the time to complete the survey and return it so we can continue to enhance our service.\.br\.br\Zana nk you again for allowing the [facility] Emergency Department to care for your medical needs. If you have questions about your care or follow up information please contact us at [phone].\.br\.b r\ Follow-Up Instructions\.br\____ _\.br\ADILENE MTZ has been given these follow-up instructions:\.br\.b r\.br\With: Address: When: \.br\YOSEF GREWAL, Orthopedics [address] [place] [address]\.br\ Business (2) Within 3 to 5 days [...] let your hands hang down, the hand product advisor should be at your wrists. When you put your hands on the hand product advisor, your elbows should be slightly bent.\.br\To stay [...] let your hands hang down, the hand product advisor should be at your wrists.\.br\? When you put your hands on the hand product advisor, your elbows should be slightly bent.\.br\1. Put [...] walking.\.br\Take s (more content not included)... Normal [facility] ED Triage Adult-Texton 12-20 ED Triage [...] PNED ; Probability: 0 ; Diagnosis Code: [id number] (As Of: 12/20/2021 12:33:35 EDT) Allergies (Active) [...] Ríos RN - 12/20/2021 12:32 EDT Normal [facility] XR KNEE LEFT 3 VIEWSon 12-20 [...] ROBLERO MD Signed Out: 12/20/21 13:38:27 Normal [facility] Vital Signs Date Time Vital Sign Value Performing Clinician Faci lity 06-20-2023 11:09-0500 Body height 185.42 cm [facility] 06-20-2023 11:09-0500 Body mass index (BMI) [Ratio] 32.5 kg/m2 [facility] 06-20-2023 11:09-0500 Body temperature 97.2 [degF] [facility] 06-20-2023 11:09-0500 Body weight 112.03 kg [facility] 06-20-2023 11:09-0500 Diastolic blood pressure 89 mm[Hg] [facility] 06-20-2023 11:09-0500 Heart rate 93 /min [facility] 06-20-2023 11:09-0500 Respiratory rate 18 /min [facility] 06-20-2023 11:09-0500 SaO2% (BldA) [Mass fraction] 96 % [facility] 06-20-2023 11:09-0500 Systolic blood pressure 134 mm[Hg] [facility] Encounters Encounter Date Encounter Type Care Provider Facility Start: 12-24-2023 End: 12-24-2023 ambulatory Steve Rene MD Facility: [facility] Start: 06-20-2023 End: 06-20-2023 ambulatory [facility] Work Phone: Start: 06-20-2023 End: 06-20-2023 Patient encounter procedure [facility] Work Phone: Start: 04-02-2023 End: 04-02-2023 ambulatory Steve Rene MD Facility:[facility] Start: 02-19-2023 End: 02-19-2023 ambulatory Steve Rene MD Facility:[facility] Start: 01-29-2023 End: 01-29-2023 ambulatory Steve Rene MD Facility:[facility] Start: 12-06-2022 End: 12-06-2022 ambulatory Melody Rice Facility:[facility] Start: 12-06-2022 End: 12-06-2022 ambulatory TERENCE Rice Work Phone: [facility] Work Phone: Start: 12-06-2022 End: 12-06-2022 Patient encounter procedure MARKET PRESIDENT-C Melody Rice Work Phone: [facility] Work Phone: Procedures Date Procedure Procedure Detail Performing Clinician Start: 12-06-2022 Plain X-ray of left hand MARKET PRESIDENT-C Melody Rice Work Phone: Payers Date Payer Category Payer Self-pay 2022 Unknown 1995 Unknown [id number] 1995 Unknown [id number] 1995 Unknown [id number] 96 1995 Unknown [id number] 96 Unknown [id number] Worker's Compensation Industrial Self Ins Misc [id number] Social History Date Type Detail Facility [facility] if [facility] Work Phone: Start: 1995 Sex Assigned At Male F [facility] Start: 06-20-2023 Tobacco smoking stat [facility] Never smoked tobacco (finding) [facility] Clinical Note 12-20-2021 Note Date & Type Note Facility 12-20-2021 Note ED Nursing Discharge Summary Entered On: 12/20/2021 15:59 EDT Performed On: 12/20/2021 15:25 EDT by Ayah Brooke RN, DC Information [id number] ED IV's : No IV ED IV Site Assessment : No IV ED Vitals Completed : Yes ED Final Assessment Completed : Yes ED Progress Note Completed : Yes Complete all PRN/Pain response forms? : Yes ED Disassociate Patient from Monitor : N/A Updated Depart Time : Yes ED Belongings sent w patient [id number] : Not applicable Ayah Brooke RN - [...] Ayah Brooke RN - 12/20/2021 15:58 EDT [facility] Clinical Note 12-20-2021 Note Date & [...] answered. VSS. To lobby with steady gait. [facility] Evaluation note Note Date & Type Note Facility Evaluation note No assessment information availa [facility] Work Phone: Summary Purpose Family History No Family History Records FoundNo Family History Records FoundNo Family History Records Found Advance Directives No Advanced Directives Records Found Advance Directive Response Recorded Date/ Time Advance Directives No December 13, 023 9:09am Chief Complaint and Reason for Visit Chief Complaint R big toe swollen Additional Source Comments (unrecognized sect ion and content) No Status Records FoundNo Status Records FoundNo Status Records Found INFORMATION SOURCE (unrecogn ized section and content) DATE CREATED AUTHOR 12/28/2021 [facility] DATE CREATED AUTHOR AUTHOR'S ORGANIZ ATION 01/10/2023 [facility] DATE CREATED AUTHOR AUTHOR'S ORGANIZ ATION 01/04/2024 [facility] Care Teams (unrecognized sec tion and content) [...] BE BASED ON THE PRIMARY CLINICAL RECORDS. [facility] [employer] provides no warranty or guarantee of the accuracy or completeness of information in this document.
[2024-01-14 09:05] VITALS: BP 135/88; PULSE 80; TEMP 36.6; O2SAT 98
[2024-01-14 09:39] VITALS: BP 140/64; PULSE 75; O2SAT 99
[2024-01-14 09:49] VITALS: BP 130/64; PULSE 78; O2SAT 98
[2024-01-14] MEDS: BUPIVACAINE HCL 0.25% PF 25 MG/10 ML VIAL 4 ML INJ (09:57)
[2024-01-14] MEDS: TRIAMCINOLONE ACETONIDE 40 MG/ML VIAL 80 MG INJ (09:57)
[2024-01-14] MEDS: LIDOCAINE HCL 2% 400 MG/20 ML MDV 16 ML INJ (09:57)
--- NOTE | 2024-01-14 10:00 | P.ON_ITS ---
Date of procedure: 01/14/24 Pre-op diagnosis: Pain due to lumbar spondylosis without myelopathy Post-op diagnosis: same as pre-op Procedure: Procedure: Bilateral L4-5, L5-S1 radiofrequency ablation Medications: Bupivacaine 0.25% 6cc, lidocaine 2% 6cc, kenalog 80mg The patient was seen and examined in the preoperative holding area.? The site was marked.? Written informed consent was obtained and placed on the chart.? The patient was brought to the medical procedure unit and placed in the prone position.? A timeout was completed verifying correct patient, procedure, positioning, and special requirements.? The skin overlying the target points, the designated medial branch, were prepped and draped in the usual sterile fashion.? The target point was achieved with a 20-gauge 15 cm with a 10 mm curved active tip radiofrequency cannula under direct fluoroscopic visualization.? The needle was inserted at level L4 on the right side. Needle tip position was confirmed with lateral fluoroscopic position.? Motor stimulation was carried out at 2 Hz up to 5 volts with the absence of extremity activity.? This was repeated at level L5, S1 on right side.?? Sensory stimulation was carried out.? Concordant pain was realized at the above- mentioned sites.? Then radiofrequency lesioning was carried out times 90 seconds at 80 degrees times 2 lesions at each level.? The radiofrequency probe was removed prior to cannula removal.? The above-mentioned injectate was placed in 1 mL increments.? The needle was removed. The same procedure, with the same steps, was then completed on the left side at the same levels. Insertion sites were covered.? The patient was taken to the postoperative recovery area and monitored for an appropriate length of time before being found suitable for discharge in the company of a responsible adult. Anesthesia: Local Surgeon: Steve Rene Pathology: none sent Condition: stable Disposition: no change
== END 2024-01-14 09:59 | disposition home or self-care (01) ==
LOC: SURGOUT 08:41
PROVIDERS: PCP Nurse Practitioner; Visit Provider Anesthesiology
DX: M47.816 Spondylosis without myelopathy or radiculopathy, lumbar region (principal)
CPT/HCPCS: 64635; 64636; J0665; J3301